=== PATIENT | female | born 1945 | race Caucasian/White ===

== ENCOUNTER → 2018-07-23 08:18 | Outpatient (CLI) | payer OTHER, SELFPAY ==
[2018-07-23 09:38] LABS: Creatinine Urine Random 73.5 mg/dL
[2018-07-23 09:43] LABS: Microalbumi Creatinin Ratio Ur 25.8 ug/mg CR (<30); Microalbumin Urine Random 1.9 mg/dL (0-1.6)
[2018-07-23 09:46] LABS: BUN Creatinine Ratio 26.7 (6-22); Blood Urea Nitrogen 24 mg/dL (7-17); Carbon Dioxide 22 mmol/L (22-32); Chloride 109 mmol/L (98-107); Cholesterol 172 mg/dL (140-199); Estimated Glomerular Filt Rate > 60.0 mL/min (>60); Glucose 89 mg/dL (80-110); HDL Cholesterol 59 mg/dL (40-60); HEMOLYSIS < 15 (0-50); LDL Cholesterol Calculated 87 mg/dL (<100); Sodium 146 mmol/L (137-145); Triglycerides 130 mg/dL (35-150)
[2018-07-23 09:49] LABS: Hemoglobin A1C% w Est Avg Glu 5.7 % (4.0-6.0)
== END ==
PROVIDERS: PCP Family Medicine; Visit Provider Family Medicine
DX: I10 Essential (primary) hypertension (principal); R73.9 Hyperglycemia, unspecified; R79.9 Abnormal finding of blood chemistry, unspecified
CPT/HCPCS: 36415; 80048; 80061; 82043; 82570; 83036

== ENCOUNTER → 2018-09-04 15:46 | Outpatient (CLI) | payer OTHER, SELFPAY ==
--- NOTE | 2018-09-04 15:50 | DI.MG.S_ITS ---
BILATERAL DIGITAL SCREENING MAMMOGRAM 3D/2D WITH CAD: 09/04/2018 CLINICAL: Routine screening. Comparison is made to exams dated: 03/01/2017 mammogram, 05/25/2015 mammogram - [facility], and 08/20/2013 mammogram - [facility] [place]. There are scattered fibroglandular elements in both breasts. Current study was also evaluated with a Computer Aided Detection (CAD) system. No significant masses, calcifications, or other findings are seen in either breast. There has been no significant interval change. IMPRESSION: NEGATIVE There is no mammographic evidence of malignancy. A 1 year screening mammogram is recommended. This exam was interpreted at Station ID: [id number]. NOTE: For mammograms, a report in lay terms will be sent to the patient. Approximately 15% of breast malignancies will not be visualized mammographically. In the management of a palpable breast mass, a negative mammogram must not discourage biopsy of a clinically suspicious lesion. Electronically Signed By: Dilia de leon/christie:09/04/2018 16:30:00 letter sent: Normal Exam ACR BI-RADS Category 1: Negative 3341F
== END ==
PROVIDERS: Family Provider Family Medicine; PCP Family Medicine; Visit Provider Family Medicine
DX: Z12.31 Encounter for screening mammogram for malignant neoplasm of breast (principal)
CPT/HCPCS: 77063; 77067

== ENCOUNTER → 2019-09-23 09:27 | Outpatient (CLI) | payer OTHER, SELFPAY ==
--- NOTE | 2019-09-23 | DI.MG.S_ITS ---
BILATERAL DIGITAL SCREENING MAMMOGRAM 3D/2D WITH CAD: 09/23/2019 CLINICAL: Routine screening. Comparison is made to exams dated: 09/04/2018 mammogram - [facility], 03/01/2017 mammogram, 05/25/2015 mammogram - [facility] [place], and 08/20/2013 mammogram - [facility]. There are scattered fibroglandular elements in both breasts. Current study was also evaluated with a Computer Aided Detection (CAD) system. No significant masses, calcifications, or other findings are seen in either breast. There has been no significant interval change. IMPRESSION: NEGATIVE There is no mammographic evidence of malignancy. A 1 year screening mammogram is recommended. This exam was interpreted at Station ID: [id number]. NOTE: For mammograms, a report in lay terms will be sent to the patient. Approximately 15% of breast malignancies will not be visualized mammographically. In the management of a palpable breast mass, a negative mammogram must not discourage biopsy of a clinically suspicious lesion. Electronically Signed By: Jb cabrera/christie:09/23/2019 10:19:28 letter sent: Normal Exam ACR BI-RADS Category 1: Negative 3341F
== END ==
PROVIDERS: PCP Family Medicine; Visit Provider Family Medicine
DX: Z12.31 Encounter for screening mammogram for malignant neoplasm of breast (principal)
CPT/HCPCS: 77063; 77067

== ENCOUNTER → 2020-09-29 09:27 | Outpatient (CLI) | payer OTHER, SELFPAY ==
--- NOTE | 2020-09-29 | DI.MG.S_ITS ---
BILATERAL DIGITAL SCREENING MAMMOGRAM 3D/2D WITH CAD: 09/29/2020 CLINICAL: Routine screening. Comparison is made to exams dated: 09/23/2019 mammogram, 09/04/2018 mammogram - [facility], and 03/01/2017 mammogram - [facility]. There are scattered fibroglandular elements in both breasts. Current study was also evaluated with a Computer Aided Detection (CAD) system. No significant masses, calcifications, or other findings are seen in either breast. There has been no significant interval change. IMPRESSION: NEGATIVE There is no mammographic evidence of malignancy. A 1 year screening mammogram is recommended. This exam was interpreted at Station ID: [id number]. NOTE: For mammograms, a report in lay terms will be sent to the patient. Approximately 15% of breast malignancies will not be visualized mammographically. In the management of a palpable breast mass, a negative mammogram must not discourage biopsy of a clinically suspicious lesion. Electronically Signed By: Hal Meade M.D., jr/christie:09/29/2020 11:31:11 letter sent: Normal Exam ACR BI-RADS Category 1: Negative 3341F
== END ==
PROVIDERS: PCP Family Medicine; Referring Provider Family Medicine; Visit Provider Family Medicine
DX: Z12.31 Encounter for screening mammogram for malignant neoplasm of breast (principal)
CPT/HCPCS: 77063; 77067

== ENCOUNTER → 2020-12-10 09:04 | Outpatient (CLI) | payer OTHER, SELFPAY ==
[2020-12-10 10:08] LABS: Alanine Aminotransferase 18 IU/L (<35); Albumin 4.4 g/dL (3.5-5.0); Albumin Globulin Ratio 1.4 (1.0-2.8); Alkaline Phosphatase 83 U/L (38-126); Aspartate Aminotransferase 32 IU/L (14-36); BUN Creatinine Ratio 32.5 (6-22); Bilirubin Total 0.2 mg/dL (0.2-1.3); Blood Urea Nitrogen 37 mg/dL (7-17); Calcium 9.6 mg/dL (8.4-10.2); Carbon Dioxide 22 mmol/L (22-32); Chloride 108 mmol/L (98-107); Estimated Glomerular Filt Rate 46.3 mL/min (>60); Globulin 3.2 g/dL (1.7-4.1); Glucose 95 mg/dL (80-110); HEMOLYSIS < 15 (0-50); Potassium 4.6 mmol/L (3.4-5.1); Sodium 141 mmol/L (137-145); Total Protein 7.6 g/dL (6.3-8.2)
[2020-12-10 10:43] LABS: Creatinine Urine Random 130.6 mg/dL
[2020-12-10 10:48] LABS: Microalbumi Creatinin Ratio Ur 12.2 ug/mg CR (<30); Microalbumin Urine Random 1.6 mg/dL (0-1.6)
== END ==
PROVIDERS: PCP Family Medicine; Referring Provider Family Medicine; Visit Provider Family Medicine
DX: I10 Essential (primary) hypertension (principal)
CPT/HCPCS: 36415; 80053; 82043; 82570

== ENCOUNTER → 2021-01-06 09:34 | Outpatient (CLI) | payer OTHER, SELFPAY ==
[2021-01-06 10:25] LABS: BUN Creatinine Ratio 26.8 (6-22); Blood Urea Nitrogen 26 mg/dL (7-17); Calcium 9.5 mg/dL (8.4-10.2); Carbon Dioxide 25 mmol/L (22-32); Chloride 109 mmol/L (98-107); Estimated Glomerular Filt Rate 55.8 mL/min (>60); Glucose 87 mg/dL (80-110); HEMOLYSIS < 15 (0-50); Potassium 4.2 mmol/L (3.4-5.1); Sodium 142 mmol/L (137-145)
== END ==
PROVIDERS: PCP Family Medicine; Referring Provider Family Medicine; Visit Provider Family Medicine
DX: R79.89 Other specified abnormal findings of blood chemistry (principal)
CPT/HCPCS: 36415; 80048

== ENCOUNTER → 2021-03-28 08:13 | Outpatient (CLI) | payer OTHER, SELFPAY ==
--- NOTE | 2021-03-28 08:14 | DI.RAD.S_ITS ---
PROCEDURE: XR CHEST 2V INDICATIONS: SOB TECHNIQUE: 2 views of the chest were acquired. COMPARISON: None. FINDINGS: Surgical changes and devices: None. Lungs and pleura: No pleural effusions or pneumothorax. Diffuse ill-defined reticular and ground-glass opacities are present primarily within the lung bases. No focal consolidation. Mediastinum: Mediastinal contours are normal. Heart size is normal. Bones and chest wall: No suspicious bony abnormalities. Soft tissues appear unremarkable. IMPRESSION: Ill-defined and hazy ground-glass mild opacities in both lung bases which could represent chronic scarring/interstitial disease although cannot exclude pulmonary edema or low-grade atypical or viral pneumonia in the absence of any prior studies. If there is persistent clinical diagnostic uncertainty, continued surveillance with short interval radiographic followup after treatment is recommended. Dictated by: Harvey Montanez M.D. on 03/28/2021 at 10:00 Approved by: Harvey Montanez M.D. on 03/28/2021 at 10:02
== END ==
PROVIDERS: PCP Family Medicine; Referring Provider Family Medicine; Visit Provider Family Medicine
DX: R06.02 Shortness of breath (principal)
CPT/HCPCS: 71046

== ENCOUNTER → 2021-04-05 08:35 | Outpatient (CLI) | payer OTHER, SELFPAY ==
--- NOTE | 2021-04-05 08:37 | DI.RAD.S_ITS ---
PROCEDURE: XR CHEST 2V INDICATIONS: SOB TECHNIQUE: 2 views of the chest were acquired. COMPARISON: [facility], CR, XR CHEST 2V, 03/28/2021, 8:13. FINDINGS: Surgical changes and devices: Surgical fusion in the visible lower lumbar spine. Lungs and pleura: Chronic coarse interstitial markings in the perihilar and bilateral lower lung regions. No dense consolidations. No pleural effusion or pneumothorax. Mediastinum: Mediastinal contours are normal. Heart size is normal. Bones and chest wall: No suspicious bony abnormalities. Soft tissues appear unremarkable. IMPRESSION: 1. No significant change compared to the most recent prior study. This may reflect chronic interstitial lung disease, bronchitis, or recurrent disease similar to 03/22 02/21. Dictated by: Jessica Pascual M.D. on 04/05/2021 at 11:24 Approved by: Jessica Pascual M.D. on 04/05/2021 at 11:26
== END ==
PROVIDERS: PCP Family Medicine; Referring Provider Family Medicine; Visit Provider Family Medicine
DX: R06.02 Shortness of breath (principal)
CPT/HCPCS: 71046

== ENCOUNTER → 2021-04-12 08:19 | Outpatient (CLI) | payer OTHER, SELFPAY ==
[2021-04-12 09:09] LABS: BUN Creatinine Ratio 31.1 (6-22); Blood Urea Nitrogen 28 mg/dL (7-17); Estimated Glomerular Filt Rate > 60.0 mL/min (>60)
== END ==
PROVIDERS: PCP Family Medicine; Referring Provider Family Medicine; Visit Provider Family Medicine
DX: R06.02 Shortness of breath (principal)
CPT/HCPCS: 36415; 82565; 84520

== ENCOUNTER → 2021-04-14 09:46 | Outpatient (CLI) | payer OTHER, SELFPAY ==
--- NOTE | 2021-04-14 09:47 | DI.CT.S_ITS ---
PROCEDURE: CT CHEST W CON INDICATIONS: SOB TECHNIQUE: After the administration of intravenous contrast, 5 mm thick sections acquired from the pulmonary apices to the posterior costophrenic angles. 1 mm axial lung, 5 mm thick coronal and sagittal reformats and 7 mm axial MIP were acquired. For radiation dose reduction, the following was used: automated exposure control, adjustment of mA and/or kV according to patient size. COMPARISON: [facility], CR, XR CHEST 2V, 04/05/2021, 8:37. [facility], CR, XR CHEST 2V, 03/28/2021, 8:13. FINDINGS: Image quality: Excellent. Lungs and pleura: Mild reticular thickening most pronounced at the subpleural lung bases and lingula. No consolidation. No pleural effusions or pneumothorax. Central airways are clear. Mediastinum: Heart size is normal. No pericardial effusion. No mediastinal or hilar adenopathy by size criteria. Thoracic aorta and central pulmonary arteries are normal in size. Esophagus is normal in caliber. No hiatal hernia. Bones and chest wall: No suspicious bony lesions. No vertebral body compression fractures. No axillary or supraclavicular adenopathy by size criteria. Subcentimeter right thyroid nodule measuring 0.9 cm, (2/1). Abdomen: Visualized upper abdominal solid organs appear normal. Upper abdominal bowel loops are normal in caliber. IMPRESSION: 1. Minimal reticular thickening. Favor scarring. Less likely early interstitial lung disease. 2. No pleural effusion. Dictated by: Mani Welch M.D. on 04/14/2021 at 12:16 Approved by: Mani Welch M.D. on 04/14/2021 at 12:24
== END ==
PROVIDERS: PCP Family Medicine; Referring Provider Family Medicine; Visit Provider Family Medicine
DX: R06.02 Shortness of breath (principal)
CPT/HCPCS: 71260; Q9967

== ENCOUNTER → 2021-06-15 09:00 | Outpatient (CLI) | payer OTHER, SELFPAY ==
[2021-06-15 09:50] LABS: COVID19 -Nasal RAPID Negative (Negative)
== END ==
PROVIDERS: PCP Family Medicine; Referring Provider Internal Medicine; Visit Provider Internal Medicine
DX: Z20.822 Contact with and (suspected) exposure to COVID-19 (principal)
CPT/HCPCS: 87635; C9803

== ENCOUNTER → 2021-06-16 08:49 | Outpatient (CLI) | payer OTHER, SELFPAY ==
--- NOTE | 2021-06-24 11:26 | P.PFT.S_ITS ---
Pulmonary Function Test Referral & Results Date Patient Seen: 06/16/21 Requesting provider: Hyacinth Polo Results: The spirometry demonstrates an FVC of 1.73 L which is 66% of predicted. The FEV1 was measured at 1.29 L which is 65% of predicted. The FEV1/FVC ratio was 74 which is 99% of predicted. Following the administration of bronchodilator there was an 18% improvement in FEV1 and a 117% improvement in FEF 25-75% Lung volumes show an SVC of 2.09 L which is 77% of predicted. The diffusing capacity was measured at 17.32 which is 75% of predicted. No hemoglobin value was provided, so no correction for potential anemia could be made, if appropriate. The maximum voluntary ventilation was reduced Interpretation: This study demonstrates probable mild obstructive lung disease based on r eduction FEV1 although FEV1/FVC ratio is preserved. There is evidence of significant benefit following bronchodilator as above. There is also minimal reduction in SVC suggesting restrictive lung disease is present which may explain at least in part the reduction FEV1 There is also mild reduction diffusing capacity suggesting element of disease at the capillary alveolar level Clinical correlation suggested
== END ==
PROVIDERS: PCP Family Medicine; Referring Provider Family Medicine; Visit Provider Family Medicine
DX: R05.9 Cough, unspecified (principal); J98.8 Other specified respiratory disorders
CPT/HCPCS: 94060; 94726; 94729

== ENCOUNTER → 2021-10-07 09:46 | Outpatient (CLI) | payer OTHER, SELFPAY ==
--- NOTE | 2021-10-07 | DI.MG.S_ITS ---
BILATERAL DIGITAL SCREENING MAMMOGRAM 3D/2D WITH CAD: 10/07/2021 CLINICAL: Routine screening. Comparison is made to exams dated: 09/29/2020 mammogram, 09/23/2019 mammogram, and 09/04/2018 mammogram - [facility]. There are scattered fibroglandular elements in both breasts. Current study was also evaluated with a Computer Aided Detection (CAD) system. No significant masses, calcifications, or other findings are seen in either breast. There has been no significant interval change. IMPRESSION: NEGATIVE There is no mammographic evidence of malignancy. A 1 year screening mammogram is recommended. This exam was interpreted at Station ID: [id number]. NOTE: For mammograms, a report in lay terms will be sent to the patient. Approximately 15% of breast malignancies will not be visualized mammographically. In the management of a palpable breast mass, a negative mammogram must not discourage biopsy of a clinically suspicious lesion. Electronically Signed By: Earl araujo/christie:10/07/2021 10:59:39 letter sent: Normal Exam ACR BI-RADS Category 1: Negative 3341F
--- NOTE | 2021-10-07 09:47 | DI.US.S_ITS ---
PROCEDURE: US THYROID INDICATIONS: nodule TECHNIQUE: Real-time scanning was performed of the thyroid gland, with image documentation. COMPARISON: None. FINDINGS: Right: Thyroid lobe measures 4.1 x 2.4 x 2.0 cm, and is homogeneous in echotexture. Left: Thyroid lobe measures 4.1 x 1.2 x 1.5 cm, and is homogenous in echotexture. Isthmus: 5 mm thick. Nodule number: 1 Location: Left mid thyroid lobe Size: 1.2 x 0.8 x 0.8 cm. Composition: Spongiform Echogenicity: Mixed echogenicity with both anechoic and hypoechoic components. Shape: wider than tall. Margins: Smooth Echogenic foci: None Total points: 1 ACR TI-RADS category: TI-RADS 2 (not suspicious) Nodule number: 2 Location: Right superior thyroid lobe Size: 1.2 x 0.9 x 1.4 cm. Composition: Predominantly cystic Echogenicity: Isoechoic Shape: wider than tall. Margins: Smooth Echogenic foci: None Total points: 1 ACR TI-RADS category: TI-RADS 2 (not suspicious) Nodule number: 3 Location: Right superior/mid thyroid lobe Size: 1.1 x 1.0 x 1.0 cm. Composition: Spongiform Echogenicity: Mixed echogenicity with anechoic and hyperechoic components. Shape: wider than tall. Margins: Smooth Echogenic foci: None Total points: 1 ACR TI-RADS category: TI-RADS 2 (not suspicious) Nodule number: 4 Location: Inferior right thyroid lobe Size: 1.2 x 0.8 x 1.3 cm. Composition: Spongiform Echogenicity: Mixed echogenicity with anechoic and hypoechoic components Shape: wider than tall. Margins: Smooth Echogenic foci: None Total points: 1 ACR TI-RADS category: TI-RADS 2 (not suspicious) IMPRESSION: Multiple bilateralTI-RADS 2 (not suspicious) thyroid nodules. Per consensus criteria, FNA is not needed. ACR TI-RADS definitions and recommendations: TI-RADS 1 (benign): 0 points. FNA not needed. TI-RADS 2 (not suspicious): 2 points. FNA not needed. TI-RADS 3 (mildly suspicious): 3 points. * FNA if 2.5 cm or larger, follow up if 1.5 cm or larger (at 1, 3, and 5 years). TI-RADS 4 (moderately suspicious): 4-6 points. * FNA if 1.5 cm or larger, follow up if 1 cm or larger (at 1, 2, 3, and 5 years). TI-RADS 5 (highly suspicious): 7 points or more. * FNA if 1 cm or larger, follow up if 0.5 cm or larger (every year for 5 years). Dictated by: Jb Lewis M.D. on 10/07/2021 at 12:31 Approved by: Jb Lewis M.D. on 10/07/2021 at 12:39
== END ==
PROVIDERS: PCP Family Medicine; Referring Provider Family Medicine; Visit Provider Family Medicine
DX: Z12.31 Encounter for screening mammogram for malignant neoplasm of breast (principal); E04.9 Nontoxic goiter, unspecified
CPT/HCPCS: 76536; 77063; 77067

== ENCOUNTER → 2021-11-04 13:18 | Outpatient (CLI) | payer OTHER, SELFPAY ==
--- NOTE | 2021-11-04 13:19 | DI.RAD.S_ITS ---
PROCEDURE: XR HIP W PEL IF DONE LT 2V INDICATIONS: Recent Fall with left leg/hip pain TECHNIQUE: AP pelvis with lateral view(s) of the left hip(s). COMPARISON: None. FINDINGS: Bones: Subtle lucency is seen extending through the junction of the left pubic symphysis with the inferior pubic ramus and fracture cannot be excluded. Pelvic ring appears intact. No suspicious bony lesions. Mild axial joint space narrowing bilaterally. Prior posterior/interbody fusion of the lumbosacral spine incompletely evaluated. Soft tissues: The visualized bowel gas pattern is normal. No suspicious soft tissue calcifications. IMPRESSION: 1. Subtle lucency extending through the junction of the left pubic symphysis and inferior pubic ramus which could be related to artifact; however fracture cannot be excluded. Recommend correlation to point tenderness and if indicated, cross-sectional imaging such as CT could be performed or follow-up radiographs. 2. Mild symmetric hip joint degeneration. Dictated by: Javier LEE Interpreted: Deniz Ordonez MD on 11/04/2021 at 13:47 Transcribed by: NAOMIE on 11/04/2021 at 13:51 Approved by: Deniz Ordonez M.D. on 11/04/2021 at 17:14
== END ==
PROVIDERS: PCP Family Medicine; Referring Provider Family Medicine; Visit Provider Family Medicine
DX: M16.12 Unilateral primary osteoarthritis, left hip (principal); M25.552 Pain in left hip; M79.605 Pain in left leg; Z91.81 History of falling; Z98.1 Arthrodesis status
CPT/HCPCS: 73502

== ENCOUNTER → 2021-11-09 10:44 | Outpatient (CLI) | payer OTHER, SELFPAY ==
--- NOTE | 2021-11-09 10:46 | DI.CT.S_ITS ---
PROCEDURE: CT PEL WO CON INDICATIONS: abnormal xray 11/04/21, poss fracture pubic bone with pain TECHNIQUE: Noncontrast 3 mm axial sections acquired through the bony pelvis, with coronal and sagittal reformatting. COMPARISON: [facility], , XR HIP W PEL IF DONE LT 2V, 11/04/2021, 13:14. FINDINGS: Image quality: Excellent. Bones: No acute, displaced fracture or dislocation. Postsurgical change of the lumbar spine at L4 through S1 with discectomy. Soft tissues: No significant abnormality. Myomatous change of the uterus. IMPRESSION: No acute osseous abnormality. If the patient's pain persists, consider magnetic resonance imaging. Dictated by: Angel Luis Chavez M.D. on 11/09/2021 at 12:09 Approved by: Angel Luis Chavez M.D. on 11/09/2021 at 12:12
== END ==
PROVIDERS: PCP Family Medicine; Referring Provider Family Medicine; Visit Provider Family Medicine
DX: R93.89 Abnormal findings on diagnostic imaging of other specified body structures (principal); R10.2 Pelvic and perineal pain; M25.559 Pain in unspecified hip
CPT/HCPCS: 72192

== ENCOUNTER → 2022-10-06 08:46 | Outpatient (CLI) | payer OTHER, SELFPAY ==
[2022-10-06 11:13] LABS: Add Manual Diff / Slide Review NO; Basophils Absolute Auto 0 /uL (0-100); Basophils Percent Auto 0.5 % (0-2); Eosinophils Absolute Auto 300 /uL (0-450); Eosinophils Percent Auto 4.7 % (2-4); Hematocrit 37.1 % (36-46); Hemoglobin 12.2 g/dL (12.0-16.0); Lymphocytes Absolute Auto 2000 /uL (1100-4500); Lymphocytes Percent Auto 35.7 % (25-40); Mean Corpuscular HGB Conc 32.8 % (30-36); Mean Corpuscular Hemoglobin 29.4 PG (26-34); Mean Corpuscular Volume 89.5 fL (80-100); Monocytes Absolute Auto 400 /uL (0-900); Monocytes Percent Auto 8.1 % (3-14); Neutrophils Absolute Auto 2800 /uL (1500-7000); Platelet Count 269 X10^3/uL (150-400); Red Blood Cell Count 4.15 X10^6/uL (4.0-5.2); Red Cell Distribution Width 14.2 % (11.6-14.8); White Blood Cell Count 5.5 X10^3/uL (4.5-11.0)
[2022-10-06 11:46] LABS: Alanine Aminotransferase 17 IU/L (<35); Albumin 4.4 g/dL (3.5-5.0); Albumin Globulin Ratio 1.4 (1.0-2.8); Alkaline Phosphatase 94 U/L (38-126); Aspartate Aminotransferase 26 IU/L (14-36); BUN Creatinine Ratio 28.6 (6-22); Bilirubin Total 0.3 mg/dL (0.2-1.3); Blood Urea Nitrogen 26 mg/dL (7-17); Calcium 9.8 mg/dL (8.4-10.2); Carbon Dioxide 23 mmol/L (22-32); Chloride 106 mmol/L (98-107); Cholesterol 192 mg/dL (140-199); Estimated Glomerular Filt Rate > 60 mL/min (>60); Globulin 3.1 g/dL (1.7-4.1); Glucose 80 mg/dL (80-110); HDL Cholesterol 75 mg/dL (40-60); HEMOLYSIS < 15 (0-50); LDL Cholesterol Calculated 95 mg/dL (<100); Potassium 4.6 mmol/L (3.4-5.1); Sodium 141 mmol/L (137-145); Total Protein 7.5 g/dL (6.3-8.2); Triglycerides 112 mg/dL (35-150)
[2022-10-06 12:04] LABS: Creatinine Urine Random 88.2 mg/dL
[2022-10-06 12:14] LABS: TSH w/ Reflex to FT4 0.04 uIU/mL (0.47-4.68)
[2022-10-06 12:20] LABS: Microalbumi Creatinin Ratio Ur 91.8 ug/mg CR (<30); Microalbumin Urine Random 8.1 mg/dL (0-1.6)
[2022-10-06 12:39] LABS: Free T4, Direct Thyroxine 1.25 ng/dL (0.78-2.19)
== END ==
PROVIDERS: PCP Family Medicine; Referring Provider Physician Assistant; Visit Provider Physician Assistant
DX: E66.9 Obesity, unspecified (principal); E78.5 Hyperlipidemia, unspecified; I10 Essential (primary) hypertension; K21.9 Gastro-esophageal reflux disease without esophagitis; Z79.890 Hormone replacement therapy
CPT/HCPCS: 36415; 80053; 80061; 82043; 82570; 84439; 84443; 85025

== ENCOUNTER → 2022-10-12 11:27 | Outpatient (CLI) | payer OTHER, SELFPAY ==
[2022-10-12 14:38] LABS: TSH w/ Reflex to FT4 0.48 uIU/mL (0.47-4.68)
== END ==
PROVIDERS: PCP Family Medicine; Referring Provider Family Medicine; Visit Provider Family Medicine
DX: E03.9 Hypothyroidism, unspecified (principal)
CPT/HCPCS: 36415; 84443

== ENCOUNTER → 2022-11-17 11:00 | Outpatient (CLI) | payer OTHER, SELFPAY ==
--- NOTE | 2022-11-17 | DI.MG.S_ITS ---
BILATERAL DIGITAL SCREENING MAMMOGRAM 3D/2D WITH CAD: 11/17/2022 CLINICAL: Routine screening. Comparison is made to exams dated: 10/07/2021 mammogram, 09/29/2020 mammogram, 09/04/2018 mammogram, and 09/23/2019 mammogram - [facility]. There are scattered areas of fibroglandular density in both breasts (category b / 25%-50% glandular tissue). Current study was also evaluated with a Computer Aided Detection (CAD) system. No significant masses, calcifications, or other findings are seen in either breast. There has been no significant interval change. IMPRESSION: NEGATIVE There is no mammographic evidence of malignancy. A 1 year screening mammogram is recommended. Based on the Tyrer Cuzick model (a risk assessment model) the patient's lifetime risk is 1.5% and her 10 year risk is 0.0%. According to the ACR, ACS, and NCCN guidelines, an annual breast MRI exam along with mammogram is recommended if the patient's lifetime risk is 20% or greater. This exam was interpreted at Station ID: [id number]. NOTE: For mammograms, a report in lay terms will be sent to the patient. Approximately 15% of breast malignancies will not be visualized mammographically. In the management of a palpable breast mass, a negative mammogram must not discourage biopsy of a clinically suspicious lesion. Electronically Signed By: Jessica hamm/christie:11/17/2022 17:28:52 letter sent: Normal Exam ACR BI-RADS Category 1: Negative 3341F
== END ==
PROVIDERS: PCP Family Medicine; Referring Provider Family Medicine; Visit Provider Family Medicine
DX: Z12.31 Encounter for screening mammogram for malignant neoplasm of breast (principal)
CPT/HCPCS: 77063; 77067

== ENCOUNTER 2023-07-10 11:18 | Day surgery (SDC) | payer OTHER, SELFPAY ==
[2023-07-10] VITALS (9 sets, daily range): BP systolic 137–197; BP diastolic 74–90; PULSE 83–94; RESP 12–21; TEMP 36.6–36.7; O2SAT 96–100; BMI 36.6
[2023-07-10 11:59] LABS: Add Manual Diff / Slide Review NO; Basophils Absolute Auto 100 /uL (0-100); Basophils Percent Auto 0.9 % (0-2); Eosinophils Absolute Auto 200 /uL (0-450); Eosinophils Percent Auto 3.1 % (2-4); Hematocrit 36.8 % (36-46); Hemoglobin 12.4 g/dL (12.0-16.0); Lymphocytes Absolute Auto 1600 /uL (1100-4500); Lymphocytes Percent Auto 25.9 % (25-40); Mean Corpuscular HGB Conc 33.8 % (30-36); Mean Corpuscular Volume 88.8 fL (80-100); Monocytes Absolute Auto 400 /uL (0-900); Monocytes Percent Auto 7.1 % (3-14); Neutrophils Absolute Auto 4000 /uL (1500-7000); Platelet Count 291 X10^3/uL (150-400); Red Blood Cell Count 4.14 X10^6/uL (4.0-5.2); Red Cell Distribution Width 14.1 % (11.6-14.8); White Blood Cell Count 6.3 X10^3/uL (4.5-11.0)
--- NOTE | 2023-07-10 12:08 | DI.CT.S_ITS ---
PROCEDURE: CT ABDOMEN PELVIS W CON INDICATIONS: rlq pain; s/p appy TECHNIQUE: After the administration of intravenous contrast, axial sections acquired from the lung bases to the pubic symphysis. Coronal and sagittal reformats were performed. For radiation dose reduction, the following was used: automated exposure control, adjustment of mA and/or kV according to patient size. COMPARISON: None. FINDINGS: Image quality: Good Lower chest: Basal scarring/atelectasis is present. No hiatal hernia. Normal heart size. Annular calcifications of the heart. Solid organs: Suspected focal fat adjacent to the falciform ligament. There is also a cyst in segment 4. Subcentimeter lesions are too small to characterize in the liver, probably also cysts. Gallbladder is mildly distended without radiopaque stone. No pathologic dilation of the biliary system or pancreatic duct. Possible pancreatic head cystic lesion versus fatty cleft measuring 7-8 mm. No splenomegaly. No adrenal nodules. Right lower pole nonobstructing calculus. Moderate right hydronephrosis. In the right proximal ureter, there is a obstructing stone measuring up to 10 x 6 x 5 mm. In the left upper pole, there is a complicated cystic lesion with possible peripheral soft tissue measuring 2.1 by 2 cm (3/45). There is possible extension into the collecting system (3/43) the left collecting system is otherwise nondilated. Vessels and lymph nodes: No abdominal aortic aneurysm. There are atherosclerotic calcifications. No pathologic lymph nodes by size criteria. The main portal vein appears patent. Bowel and peritoneum: No evidence of small bowel obstruction. The appendix is absent. No drainable abscess or ascites. Mid small bowel hyperdensity may represent ingested material Body wall: Unremarkable Pelvis: Suspected small calcified fibroids. Reproductive organs otherwise not well evaluated on CT. Bladder is under distended, unremarkable. Bones: Lumbosacral fusion changes. There are degenerative changes. IMPRESSION: Obstructing stone with moderate hydronephrosis in the right proximal ureter, measuring up to 1 cm. Possible solid cystic mass with collecting system extension in the upper pole of the left kidney (coronal image 3/43, 44, 45). Following clinical stabilization, consider follow-up MR renal mass protocol to determine if this is a true mass. Possible pancreatic head small cystic lesion versus fatty cleft, attention on follow-up. Other findings as above. Dictated by: Linwood Pandey M.D. on 07/10/2023 at 12:52 Approved by: Linwood Pandey M.D. on 07/10/2023 at 13:00
[2023-07-10 12:11] LABS: Alanine Aminotransferase 18 IU/L (<35); Albumin 4.6 g/dL (3.5-5.0); Albumin Globulin Ratio 1.3 (1.0-2.8); Alkaline Phosphatase 77 U/L (38-126); Aspartate Aminotransferase 30 IU/L (14-36); BUN Creatinine Ratio 19.4 (6-22); Bilirubin Total 0.6 mg/dL (0.2-1.3); Blood Urea Nitrogen 30 mg/dL (7-17); Carbon Dioxide 20 mmol/L (22-32); Chloride 108 mmol/L (98-107); Estimated Glomerular Filt Rate 34 mL/min (>60); Globulin 3.5 g/dL (1.7-4.1); Glucose 95 mg/dL (80-110); HEMOLYSIS 32 (0-50); Lipase 224 U/L (23-300); Potassium 4.5 mmol/L (3.4-5.1); Sodium 141 mmol/L (137-145); Total Protein 8.1 g/dL (6.3-8.2)
--- NOTE | 2023-07-10 12:11 | ED.ABDPAIN ---
HPI - Abdominal Pain <Alex Teran PA-C - Last Filed: 07/10/23 16:34> General Chief Complaint: Abdominal Pain Stated Complaint: Rside pain started this morning Time Seen by Provider: 07/10/23 11:39 Source: patient Mode of arrival: Ambulatory History of Present Illness HPI narrative: 77-year-old with past medical history hyperlipidemia, hypertension, osteoarthritis, GERD presents to the ED with 1 day of severe right lower quadrant pain. Patient states that the pain started spontaneously this morning, rates it as 9/10 at its worst. Currently, patient experiencing 7/10 pain. Patient appears very uncomfortable. Patient denies fever, chills, chest pain, shortness of breath, vomiting, nausea, diarrhea, lightheadedness, dizziness, syncope. Patient states that she has had 2 other episodes of abdominal pain over the last 2 months, 1 in the right lower quadrant and 1 in the left lower quadrant. Patient states that the other 2 episodes also involved nausea and dry heaving. Today, patient denies nausea and vomiting but expresses a lack of appetite. Patient was not seen for the prior 2 episodes of abdominal pain. Patient is status post appendectomy. No other abdominal surgeries. Related Data Home Medications Medication Instructions Recorded Confirmed omega 2-cer-iaj-fish oil 1,000 mg 1,400 mg PO QDAY ##0 04/03/17 07/17/23 (120 mg-180 mg) capsule (Fish Oil) [Calicum ] 1,200 mg BID ##0 04/04/17 07/17/23 [Centrum Silver] Q DAY ##0 04/04/17 07/17/23 [Leg Cramps PM] Q DAY ##0 04/04/17 07/17/23 [S adenosyl methionin] ##0 04/04/17 09/28/22 [natural bounty hair ] BID ##0 04/04/17 07/17/23 magnesium oxide 400 mg (241.3 mg 400 mg Q DAY ##0 04/04/17 07/17/23 magnesium) tablet loratadine 10 mg tablet 10 mg PO HS ##0 06/19/17 07/17/23 acetaminophen 500 mg tablet 500 mg PO BID PRN 07/17/23 07/17/23 qyenqpw-kpphzphkzxlef-jxnurhjd 250 1 tab PO Q4-6H PRN 07/17/23 07/17/23 mg-250 mg-65 mg tablet (Excedrin Extra Strength) gabapentin PO 07/17/23 07/17/23 hydrocodone 5 mg-acetaminophen 325 1 tab PO Q8H PRN 07/17/23 07/17/23 mg tablet multivitamin 1 tab PO DAILY 07/17/23 07/17/23 potassium [Potassium-99] PO 07/17/23 07/17/23 zinc PO 07/17/23 Previous Rx's Medication Instructions Recorded disabled parking permit #1 ea 10/30/18 ciclesonide 80 mcg/actuation 1 puff inhalation BID #6.1 grams 05/11/21 aerosol inhaler (Alvesco) albuterol sulfate 90 mcg/actuation 2 puff inhalation Q4HP PRN asthma, 06/22/21 aerosol inhaler (Ventolin HFA) SOB #8.5 grams estradiol 0.5 mg tablet 0.5 mg PO DAILY #90 tabs 09/28/22 losartan 25 mg tablet 25 mg PO BID #180 tabs 09/28/22 medroxyprogesterone 2.5 mg tablet 2.5 mg PO DAILY #45 tabs 09/28/22 omeprazole 40 mg capsule,delayed 40 mg PO BID #180 caps 09/28/22 release simvastatin 20 mg tablet 20 mg PO BEDTIME #90 tabs 09/28/22 ciprofloxacin HCl 500 mg tablet 500 mg PO BID #10 tabs 07/10/23 phenazopyridine 200 mg tablet 200 mg PO TID PRN pain #30 tabs 07/10/23 (Pyridium) tamsulosin 0.4 mg capsule 0.8 mg (2 x 0.4 mg) PO DAILY #60 07/10/23 caps Allergies Allergy/AdvReac Type Severity Reaction Status Date / Time Sulfa (Sulfonamide Allergy Severe MY GLANDS Verified 07/17/23 15:43 Antibiotics) SWELL, I [SULFA (SULFONAMIDE CAN'T TURN ANTIBIOTICS)] MY HEAD, FEEL SICK Patient History <Alex Teran PA-C - Last Filed: 07/10/23 16:34> Medical History Arthritis Pyuria Urinary tract infection Elevated serum creatinine Right ureteral calculus Osteoarthritis Hypertension Lumbar spinal stenosis Surgical History Anesthesia History of tonsillectomy Status post appendectomy (1956) S/P lumbar fusion (06/29/17) Family History Father No problems noted. Mother No problems noted. Grandmother Heart disease Grandfather Cancer Grandmother No problems noted. Grandfather Heart disease Social History marital status: number of children: 2 household members: other occupational status: previously employed Smoking Status: Never smoker second hand exposure: No alcohol intake: current substance use type: does not use caffeine: No Type(s) of exercise: walking frequency: daily Smoking Status: Never smoker alcohol intake frequency: holidays/special occasions only Substance Use Type: does not use Exam <Alex Teran PA-C - Last Filed: 07/10/23 16:34> Narrative Exam Narrative: Const General:?cooperative, healthy appearing and comfortable [facility] Head:?normal to inspection Ears:?hearing grossly normal bilaterally Nose:?external nose normal Face and sinus:?normal facial exam and sinuses nontender Mouth:?oral mucosae normal Throat:?posterior oropharynx normal Eyes General:?appearance normal, both eyes and all related structures Neck Neck:?normal visual inspection and no lymphadenopathy noted Resp Effort & Inspection:?normal respiratory effort Auscultation:?clear to auscultation bilaterally Cardio Rate:?regular rate Rhythm:?regular rhythm GI Abdomen is soft, nondistended. Abdomen is tender to palpation in the lower quadrants, R>L. No CVA tenderness. Neuro General:?patient alert, patient awake and patient oriented x3 Initial Vital Signs Initial Vital Signs: Vital Signs Temperature 97.8 F 07/10/23 11:23 Pulse Rate 89 07/10/23 11:23 Respiratory Rate 20 07/10/23 11:23 Blood Pressure 137/82 07/10/23 11:23 Pulse Oximetry 98 07/10/23 11:23 Oxygen Delivery Method Room Air 07/10/23 11:23 <Nancie Wisdom DO - Last Filed: 07/18/23 01:26> Initial Vital Signs Initial Vital Signs: Vital Signs Temperature 97.8 F 07/10/23 11:23 Pulse Rate 89 07/10/23 11:23 Respiratory Rate 20 07/10/23 11:23 Blood Pressure 137/82 07/10/23 11:23 Pulse Oximetry 98 07/10/23 11:23 Oxygen Delivery Method Room Air 07/10/23 11:23 Course <Alex Teran PA-C - Last Filed: 07/10/23 16:34> Orders Ordered: Discontinued Medications Acetaminophen (Acetaminophen 325 Mg Tablet) 650 mg PO Q4H PRN PRN Reason: Pain, Mild (1-3) Albuterol (Albuterol 2.5 Mg/3 Ml Neb (Adult)) 2.5 mg INH NOW PRN PRN Reason: Coughing, Wheezing, Dyspnea Benzocaine (Benzocaine/Menthol 1 Sunny Pkt) 1 each PO PRN PRN PRN Reason: Sore Throat Hydromorphone HCl (Hydromorphone 1 Mg Inj) 0 mg IV Q5MIN PRN PRN Reason: Pain, Mild (1-3) Ceftriaxone Sodium 1,000 mg/ (Sodium Chloride) 100 mls @ 200 mls/hr IV NOW ONE Stop: 07/10/23 13:09 Last Infusion: 07/10/23 14:00 Dose: Infused Documented By: Admin: 07/10/23 13:18 Dose: 200 mls/hr Documented By: TEP Sodium Chloride (Normal Saline 0.9%) 1,000 mls @ 1,000 mls/hr IV BOLUS ONE Stop: 07/10/23 14:07 Last Infusion: 07/10/23 14:52 Dose: Infused Documented By: Admin: 07/10/23 13:18 Dose: 1,000 mls/hr Documented By: TEP Lactated Ringer's (Lactated Ringers) 1,000 mls @ 42 mls/hr IV CONT MARCIA Last Infusion: 07/10/23 17:12 Dose: Infused Documented By: Admin: 07/10/23 15:43 Dose: 42 mls/hr Documented By: CG Ketorolac Tromethamine (Ketorolac 30 Mg/Ml Vial) 15 mg IV NOW ONE Stop: 07/10/23 12:10 Last Admin: 07/10/23 12:18 Dose: 15 mg Documented By: TEP Morphine Sulfate (Morphine 4 Mg/Ml Inj) 4 mg IV NOW ONE Stop: 07/10/23 13:30 Last Admin: 07/10/23 13:38 Dose: 4 mg Documented By: LIZBETH Ondansetron HCl (Ondansetron 4 Mg Odt) 4 mg PO NOW PRN PRN Reason: Nausea And Vomiting Ondansetron HCl (Ondansetron 4 Mg/2 Ml Inj) 4 mg IV NOW PRN PRN Reason: Nausea And Vomiting Ondansetron HCl (Ondansetron 4 Mg/2 Ml Inj) 4 mg IV Q4H PRN PRN Reason: Nausea And Vomiting Oxycodone HCl (Oxycodone Ir 5 Mg Tablet) 5 mg PO PACUNOW PRN PRN Reason: Mild or moderate pain Phenazopyridine HCl (Phenazopyridine 100 Mg Tablet) 200 mg PO TID PRN PRN Reason: Bladder irritation Last Admin: 07/10/23 16:30 Dose: 200 mg Documented By: TC Vital Signs Vital signs: Vital Signs - 8 hr 07/10/23 11:23 07/10/23 15:34 07/10/23 16:14 Temperature 97.8 F 97.9 F 98.1 F Pulse Rate 89 94 H 84 Respiratory Rate 20 21 12 Blood Pressure 137/82 197/83 H 140/78 Pulse Oximetry 98 96 100 Oxygen Delivery Method Room Air Room Air Simple Mask Oxygen Flow Rate 5 07/10/23 16:19 07/10/23 16:24 07/10/23 16:31 Temperature Pulse Rate 84 86 91 H Respiratory Rate 12 12 16 Blood Pressure 147/79 H 167/86 H Pulse Oximetry 100 99 98 Oxygen Delivery Method Simple Mask Room Air Room Air Oxygen Flow Rate 5 <Nancie Wisdom DO - Last Filed: 07/18/23 01:26> Orders Ordered: Discontinued Medications Acetaminophen (Acetaminophen 325 Mg Tablet) 650 mg PO Q4H PRN PRN Reason: Pain, Mild (1-3) Albuterol (Albuterol 2.5 Mg/3 Ml Neb (Adult)) 2.5 mg INH NOW PRN PRN Reason: Coughing, Wheezing, Dyspnea Benzocaine (Benzocaine/Menthol 1 Sunny Pkt) 1 each PO PRN PRN PRN Reason: Sore Throat Hydromorphone HCl (Hydromorphone 1 Mg Inj) 0 mg IV Q5MIN PRN PRN Reason: Pain, Mild (1-3) Ceftriaxone Sodium 1,000 mg/ (Sodium Chloride) 100 mls @ 200 mls/hr IV NOW ONE Stop: 07/10/23 13:09 Last Infusion: 07/10/23 14:00 Dose: Infused Documented By: Admin: 07/10/23 13:18 Dose: 200 mls/hr Documented By: TEP Sodium Chloride (Normal Saline 0.9%) 1,000 mls @ 1,000 mls/hr IV BOLUS ONE Stop: 07/10/23 14:07 Last Infusion: 07/10/23 14:52 Dose: Infused Documented By: Admin: 07/10/23 13:18 Dose: 1,000 mls/hr Documented By: TEP Lactated Ringer's (Lactated Ringers) 1,000 mls @ 42 mls/hr IV CONT MARCIA Last Infusion: 07/10/23 17:12 Dose: Infused Documented By: Admin: 07/10/23 15:43 Dose: 42 mls/hr Documented By: CG Ketorolac Tromethamine (Ketorolac 30 Mg/Ml Vial) 15 mg IV NOW ONE Stop: 07/10/23 12:10 Last Admin: 07/10/23 12:18 Dose: 15 mg Documented By: TEP Morphine Sulfate (Morphine 4 Mg/Ml Inj) 4 mg IV NOW ONE Stop: 07/10/23 13:30 Last Admin: 07/10/23 13:38 Dose: 4 mg Documented By: TEP Ondansetron HCl (Ondansetron 4 Mg Odt) 4 mg PO NOW PRN PRN Reason: Nausea And Vomiting Ondansetron HCl (Ondansetron 4 Mg/2 Ml Inj) 4 mg IV NOW PRN PRN Reason: Nausea And Vomiting Ondansetron HCl (Ondansetron 4 Mg/2 Ml Inj) 4 mg IV Q4H PRN PRN Reason: Nausea And Vomiting Oxycodone HCl (Oxycodone Ir 5 Mg Tablet) 5 mg PO PACUNOW PRN PRN Reason: Mild or moderate pain Phenazopyridine HCl (Phenazopyridine 100 Mg Tablet) 200 mg PO TID PRN PRN Reason: Bladder irritation Last Admin: 07/10/23 16:30 Dose: 200 mg Documented By: TC Vital Signs Vital signs: Vital Signs - 8 hr 07/10/23 11:23 07/10/23 15:34 07/10/23 16:14 Temperature 97.8 F 97.9 F 98.1 F Pulse Rate 89 94 H 84 Respiratory Rate 20 21 12 Blood Pressure 137/82 197/83 H 140/78 Pulse Oximetry 98 96 100 Oxygen Delivery Method Room Air Room Air Simple Mask Oxygen Flow Rate 5 07/10/23 16:19 07/10/23 16:24 07/10/23 16:31 Temperature Pulse Rate 84 86 91 H Respiratory Rate 12 12 16 Blood Pressure 147/79 H 167/86 H Pulse Oximetry 100 99 98 Oxygen Delivery Method Simple Mask Room Air Room Air Oxygen Flow Rate 5 MDM - Abdominal Pain <Hyma CHELE Teran - Last Filed: 07/10/23 16:34> Lab Data 07/10/23 11:50 07/10/23 11:50 Labs: Lab Results 07/10/23 07/10/23 Range/Units 11:40 11:50 WBC 6.3 (4.5-11.0) X10^3/uL RBC 4.14 (4.0-5.2) X10^6/uL Hgb 12.4 (12.0-16.0) g/dL Hct 36.8 (36-46) % MCV 88.8 (80-100) fL MCH 30.0 (26-34) PG MCHC 33.8 (30-36) % RDW 14.1 (11.6-14.8) % Plt Count 291 (150-400) X10^3/uL Neut % (Auto) 63.0 (50-75) % Lymph % (Auto) 25.9 (25-40) % [place] % (Auto) 7.1 (3-14) % Eos % (Auto) 3.1 (2-4) % Baso % (Auto) 0.9 (0-2) % Neut # (Auto) 4000 (6385-1325) /uL Lymph # (Auto) 1600 (7722-3409) /uL [place] # (Auto) 400 (0-900) /uL Eos # (Auto) 200 (0-450) /uL Baso # (Auto) 100 (0-100) /uL Sodium 141 (137-145) mmol/L Potassium 4.5 (3.4-5.1) mmol/L Chloride 108 H (98-107) mmol/L Carbon Dioxide 20 L (22-32) mmol/L BUN 30 H (7-17) mg/dL Creatinine 1.55 H (0.52-1.04) mg/dL Estimated GFR 34 L (>60) mL/min BUN/Creatinine Ratio 19.4 (6-22) Glucose 95 (80-110) mg/dL Calcium 10.0 (8.4-10.2) mg/dL Total Bilirubin 0.6 (0.2-1.3) mg/dL AST 30 (14-36) IU/L ALT 18 (<35) IU/L Alkaline Phosphatase 77 (38-126) U/L Total Protein 8.1 (6.3-8.2) g/dL Albumin 4.6 (3.5-5.0) g/dL Globulin 3.5 (1.7-4.1) g/dL Albumin/Globulin Ratio 1.3 (1.0-2.8) Lipase 224 (23-300) U/L Urine RBC 1-5/hpf (0-5/HPF) Urine WBC 10-30/hpf H (0-5/HPF) Ur Squamous Epith Cells 1-5 /hpf (0-5/HPF) Urine Bacteria Occasional (0-1) (None) Ur Culture Indicated? Specimen cultured Point of care testing: Urine Dip Bedside Urine Bilirubin - Negative Bedside Urine Ketone - Negative Urine Specific [place] 1.015 Bedside Urine Occult Blood ++ Bedside Urine pH 6 Bedside Urine Protein + 30 Bedside Urine Urobilinogen - Negative Bedside Urine Nitrite - Negative Bedside Urine Leukocytes + 70 Esterase MDM Narrative Medical decision making narrative: 77-year-old with past medical history hyperlipidemia, hypertension, osteoarthritis, GERD presents to the ED with 1 day of severe right lower quadrant pain. Concern for nephrolithiasis versus diverticulitis versus constipation versus other intra-abdominal pathology versus other. Will obtain labs, lipase, CT abdomen pelvis. Will give ketorolac for pain. Will reassess. CT abdomen pelvis shows a 10 x 6 x 5 mm obstructing stone in the right proximal ureter with mild hydronephrosis in the right kidney. There were some other incidental findings noted including a possible solid cystic mass in the left upper pole with possible extension into the collecting system. A possible pancreatic head cystic lesion versus fatty cleft was also noted on CT. UA was positive for UTI. Patient is started on 1 g of Rocephin IV and 1 L of IV fluids. Patient's pain was well controlled with ketorolac and morphine. Dr. Ramirez from Urology was consulted, he graciously accepts to take the patient to the OR for stent placement. Discussed findings and plan with patient. She verbalized understanding. Medical records reviewed: Yes <Nancie Wisdom, - Last Filed: 07/18/23 01:26> Lab Data Labs: Lab Results 07/10/23 07/10/23 Range/Units 11:40 11:50 WBC 6.3 (4.5-11.0) X10^3/uL RBC 4.14 (4.0-5.2) X10^6/uL Hgb 12.4 (12.0-16.0) g/dL Hct 36.8 (36-46) % MCV 88.8 (80-100) fL MCH 30.0 (26-34) PG MCHC 33.8 (30-36) % RDW 14.1 (11.6-14.8) % Plt Count 291 (150-400) X10^3/uL Neut % (Auto) 63.0 (50-75) % Lymph % (Auto) 25.9 (25-40) % [place] % (Auto) 7.1 (3-14) % Eos % (Auto) 3.1 (2-4) % Baso % (Auto) 0.9 (0-2) % Neut # (Auto) 4000 (4590-1269) /uL Lymph # (Auto) 1600 (5419-1777) /uL [place] # (Auto) 400 (0-900) /uL Eos # (Auto) 200 (0-450) /uL Baso # (Auto) 100 (0-100) /uL Sodium 141 (137-145) mmol/L Potassium 4.5 (3.4-5.1) mmol/L Chloride 108 H (98-107) mmol/L Carbon Dioxide 20 L (22-32) mmol/L BUN 30 H (7-17) mg/dL Creatinine 1.55 H (0.52-1.04) mg/dL Estimated GFR 34 L (>60) mL/min BUN/Creatinine Ratio 19.4 (6-22) Glucose 95 (80-110) mg/dL Calcium 10.0 (8.4-10.2) mg/dL Total Bilirubin 0.6 (0.2-1.3) mg/dL AST 30 (14-36) IU/L ALT 18 (<35) IU/L Alkaline Phosphatase 77 (38-126) U/L Total Protein 8.1 (6.3-8.2) g/dL Albumin 4.6 (3.5-5.0) g/dL Globulin 3.5 (1.7-4.1) g/dL Albumin/Globulin Ratio 1.3 (1.0-2.8) Lipase 224 (23-300) U/L Urine RBC 1-5/hpf (0-5/HPF) Urine WBC 10-30/hpf H (0-5/HPF) Ur Squamous Epith Cells 1-5 /hpf (0-5/HPF) Urine Bacteria Occasional (0-1) (None) Ur Culture Indicated? Specimen cultured Point of care testing: Urine Dip Bedside Urine Bilirubin - Negative Bedside Urine Ketone - Negative Urine Specific [place] 1.015 Bedside Urine Occult Blood ++ Bedside Urine pH 6 Bedside Urine Protein + 30 Bedside Urine Urobilinogen - Negative Bedside Urine Nitrite - Negative Bedside Urine Leukocytes + 70 Esterase Discharge Plan Discharge Plan Discharge Problem: Nephrolithiasis UTI (urinary tract infection) Qualifiers: Urinary tract infection type: acute cystitis Hematuria presence: with hematuria Qualified Code(s): N30.01 - Acute cystitis with hematuria Patient Disposition: Admitted to Surgery Provider Discharge Comment: Patient is to be discharged to home to follow up my office in the next approximately 10 days with a KUB. Patient should when fully awake and alert resume her regular diet, regular activity and normal bathing habit without restriction. Patient may experience blood in her urine she does have a ureteral stent in place and this may cause some dysuria, frequency, urgency which is to be expected. Patient will be discharged home on an antibiotic and on tamsulosin. The patient should be warned that with the tamsulosin if she is not drinking enough water she may experience some lightheadedness and this is not so much in effect of the medication but she is not consuming enough fluid. Discharge orders & Medications Discharge Orders: Discharge (Order); Ordered 07/10/23 Ordered By: Alejandro Ramirez Prescriptions: New tamsulosin 0.4 mg capsule 0.8 mg PO DAILY Qty: 60 1RF ciprofloxacin HCl 500 mg tablet 500 mg PO BID Qty: 10 0RF Rx Instructions: Please have the patient hold her simvastatin while taking the Cipro phenazopyridine [Pyridium] 200 mg tablet 200 mg PO TID PRN (Reason: pain) Qty: 30 0RF Continued Alvesco 80 mcg/actuation HFA aerosol inhaler 1 puff inhalation BID Qty: 6.1 2RF estradiol 0.5 mg tablet 0.5 mg PO DAILY Qty: 90 3RF losartan 25 mg tablet 25 mg PO BID Qty: 180 3RF medroxyprogesterone 2.5 mg tablet 2.5 mg PO DAILY Qty: 45 3RF simvastatin 20 mg tablet 20 mg PO BEDTIME Qty: 90 3RF omeprazole 40 mg capsule,delayed release(DR/EC) 40 mg PO BID Qty: 180 3RF omega 2-gzx-pzq-fish oil [Fish Oil] 1,000 MG capsule 1,400 mg PO QDAY Qty: 0 [S adenosyl methionin] Qty: 0 magnesium oxide 400 MG tablet 400 mg Q DAY Qty: 0 [Leg Cramps PM] Q DAY Qty: 0 [Calicum ] 1,200 mg BID Qty: 0 [Centrum Silver] Q DAY Qty: 0 [natural bounty hair ] BID Qty: 0 loratadine 10 MG tablet 10 mg PO HS Qty: 0 albuterol sulfate [Ventolin HFA] 90 mcg/actuation HFA aerosol inhaler 2 puff inhalation Q4HP PRN (Reason: asthma, SOB) Qty: 8.5 1RF (DME) disabled parking permit Qty: 1 0RF Dose Instruction: As directed Rx Instructions: My patient has a medical necessity that affects her mobility and her walking is severely limited No Action acetaminophen 500 mg tablet 500 mg PO BID PRN multivitamin Tablet 1 tab PO DAILY Excedrin Extra Strength 250-250-65 mg tablet 1 tab PO Q4-6H PRN hydrocodone-acetaminophen 5-325 mg tablet 1 tab PO Q8H PRN gabapentin PO zinc PO potassium [Potassium-99] PO Follow up/Referrals: Hyacinth Polo MD [Primary Care Provider] - Alejandro Ramirez MD [Physician] - 2 Weeks Diet/Activity/Treatments Diet: Diet as Tolerated Visit Report/Discharge Packet Instructions: DI for Cystoscopy Stand Alone Forms: Patient Portal/API, Stroke Signs & Symptoms, Surgery Discharge Discharge Data Primary Care Provider: Hyacinth Polo Attending Provider: Alex Teran Discharges patient from system. Discharge Date/Time: 07/10/23 17:13 ED Sign-out <Nancie Wisdom DO - Last Filed: 07/18/23 01:26> Cosign ED Attending Cosgarthature Attestation: I was immediately available in the department for consultation. Case was discussed. Patient has stone elevation and creatinine and concern for infection and urine. Urology is on-call contacted and bland for patient to go to OR for stent placement day. Agree with current plan and treatment.
[2023-07-10] MEDS: KETOROLAC 30 MG/ML VIAL 15 MG IV (12:18)
[2023-07-10 12:22] LABS: Bacteria Urine Occasional (0-1); Culture Indicated Urine Specimen Cultured; RBC Urine 1-5/HPF (0-5/HPF); Squamous Epithelial Cell Urine 1-5 /HPF (0-5/HPF); WBC Urine 10-30/HPF (0-5/HPF)
[2023-07-10] MEDS: SODIUM CHLORIDE 0.9% 1,000 ML 1000 ML IV (13:18)
[2023-07-10] MEDS: cefTRIAXone 1,000 MG in SODIUM CHLORIDE 0.9% 100 ML 200 MG IV (13:18)
[2023-07-10] MEDS: MORPHINE 4 MG/ML INJ IV (13:38)
--- NOTE | 2023-07-10 15:01 | PM.CN ---
History of Present Illness Consult details Date Patient Seen: 07/10/23 Time Patient Seen: 15:01 Chief complaint: Obstructing right ureteral calculus Reason for consult: Obstructing right ureteral calculus, elevated creatinine, evidence UTI Requesting provider: Alex Teran Narrative: Was called to see this 77-year-old female who presented to the emergency department with complaints of right-sided flank pain. Through the workup she was found to have a 1 cm proximal right ureteral calculus which had evidence of obstruction as well as evidence of infection and a significant bump in her creatinine. Patient reports he is never had a kidney stone before or kidney stone treatment. She denies at this point fever, chills, nausea, vomiting, sign or symptom of infectious systemic illness. She is been given a g of Rocephin in the emergency department. She is never had anything like this before. Denies any gross hematuria has had right flank pain and colic. And so the procedure, risks, alternatives for cystoscopy with right ureteral stent placement were discussed with the patient at length in her questions were answered risks to include but not limited to bleeding, infection, injury to surrounding structures, ureteral perforation, need for percutaneous nephrostomy tube, possible need for future procedures, worsening of her current urinary tract infection, unforeseen and unpredictable consequences in sequelae. Patient voices understanding and acceptance of risks and wishes to proceed. She will be taken to the operating room where cystoscopy with stent placement will be performed and then patient will be discharged to home to follow up my office at a later date. Meds Home Medications and Allergies Home Medications Medication Instructions Recorded Confirmed Type omega 4-xgr-ctb-fish oil 1,000 mg 1,400 mg PO QDAY ##0 04/03/17 09/28/22 History (120 mg-180 mg) capsule (Fish Oil) [Calicum ] 1,200 mg BID ##0 04/04/17 09/28/22 History [Centrum Silver] Q DAY ##0 04/04/17 09/28/22 History [Leg Cramps PM] Q DAY ##0 04/04/17 09/28/22 History [S adenosyl methionin] ##0 04/04/17 09/28/22 History [natural bounty hair ] BID ##0 04/04/17 09/28/22 History magnesium oxide 400 mg (241.3 mg 400 mg Q DAY ##0 04/04/17 09/28/22 History magnesium) tablet loratadine 10 mg tablet 10 mg PO HS ##0 06/19/17 09/28/22 History disabled parking permit #1 ea 10/30/18 09/28/22 Rx ciclesonide 80 mcg/actuation 1 puff inhalation BID #6.1 grams 05/11/21 09/28/22 Rx aerosol inhaler (Alvesco) albuterol sulfate 90 mcg/actuation 2 puff inhalation Q4HP PRN asthma, 06/22/21 09/28/22 Rx aerosol inhaler (Ventolin HFA) SOB #8.5 grams amoxicillin 875 mg-potassium 1 tab PO BID #14 tabs 09/28/22 09/28/22 Rx clavulanate 125 mg tablet estradiol 0.5 mg tablet 0.5 mg PO DAILY #90 tabs 09/28/22 09/28/22 Rx losartan 25 mg tablet 25 mg PO BID #180 tabs 09/28/22 09/28/22 Rx medroxyprogesterone 2.5 mg tablet 2.5 mg PO DAILY #45 tabs 09/28/22 09/28/22 Rx omeprazole 40 mg capsule,delayed 40 mg PO BID #180 caps 09/28/22 09/28/22 Rx release simvastatin 20 mg tablet 20 mg PO BEDTIME #90 tabs 09/28/22 09/28/22 Rx Allergies Allergy/AdvReac Type Severity Reaction Status Date / Time Sulfa (Sulfonamide Allergy Severe MY GLANDS Verified 12/24/20 10:58 Antibiotics) SWELL, I [SULFA (SULFONAMIDE CAN'T TURN ANTIBIOTICS)] MY HEAD, FEEL SICK Exam Vital Signs (past 8 hours): - 07/10/23 11:23 Temperature 97.8 F Pulse Rate 89 Respiratory Rate 20 Blood Pressure 137/82 Pulse Oximetry 98 Oxygen Delivery Method Room Air Oxygen Delivery Method Room Air Narrative Exam Narrative: General: This is an awake, alert, oriented female wearing corrective lenses lying on a gurney who appears in moderate distress. Lungs: Coarse breath sounds Cardiovascular exam: Regular rate and rhythm with a rate in the 80s. Abdominal exam: Obese, soft, not particularly tender. Back: Right CVA tenderness to percussion Genitourinary exam not indicated so not done Neurologic exam: Grossly intact Objective Labs 07/10/23 11:50 07/10/23 11:50 Labs: Laboratory Results - last 24 hr 07/10/23 07/10/23 11:40 11:50 WBC 6.3 RBC 4.14 Hgb 12.4 Hct 36.8 MCV 88.8 MCH 30.0 MCHC 33.8 RDW 14.1 Plt Count 291 Neut % (Auto) 63.0 Lymph % (Auto) 25.9 [place] % (Auto) 7.1 Eos % (Auto) 3.1 Baso % (Auto) 0.9 Neut # (Auto) 4000 Lymph # (Auto) 1600 [place] # (Auto) 400 Eos # (Auto) 200 Baso # (Auto) 100 Sodium 141 Potassium 4.5 Chloride 108 H Carbon Dioxide 20 L BUN 30 H Creatinine 1.55 H Estimated GFR 34 L BUN/Creatinine Ratio 19.4 Glucose 95 Calcium 10.0 Total Bilirubin 0.6 AST 30 ALT 18 Alkaline Phosphatase 77 Total Protein 8.1 Albumin 4.6 Globulin 3.5 Albumin/Globulin Ratio 1.3 Lipase 224 Urine RBC 1-5/hpf Urine WBC 10-30/hpf H Ur Squamous Epith Cells 1-5 /hpf Urine Bacteria Occasional (0-1) Ur Culture Indicated? Specimen cultured [facility] Medical History (Updated 07/10/23 @ 15:08 by Alejandro Ramirez MD) Pyuria Urinary tract infection Elevated serum creatinine Right ureteral calculus Osteoarthritis Hypertension Lumbar spinal stenosis Surgical History Anesthesia History of tonsillectomy Status post appendectomy (1956) S/P lumbar fusion (06/29/17) Family History Father No problems noted. Mother No problems noted. Grandmother Heart disease Grandfather Cancer Grandmother No problems noted. Grandfather Heart disease Tobacco & Substance Use Smoking Status: Never smoker second hand exposure: No alcohol intake: current substance use type: does not use Assessment & Plan Assessment and plan (1) Elevated serum creatinine: Status: Acute (2) Urinary tract infection: Qualifiers: Urinary tract infection type: acute cystitis Hematuria presence: without hematuria Qualified Code(s): N30.00 - Acute cystitis without hematuria Status: Acute (3) Pyuria: Status: Acute (4) Right ureteral calculus: Status: Acute Plan Assessment and plan: 1. Obstructing 1 cm right ureteral calculus plan would be for cystoscopy with right ureteral stent placement. 2. Urinary tract infection the patient has received Rocephin in the emergency department and will be sent home on an antibiotic till her culture results return of note the patient does have an allergy to sulfa antibiotics 3. Pyuria consistent with her urinary tract infection 4. Elevated serum creatinine likely related to the current clinical situation will monitor this to see if it does not improve. COVID-19 COVID-19 status: Not tested Time Spent With Patient Time with patient: 30 to 49 minutes with 50% spent counseling/coordinating care
--- NOTE | 2023-07-10 15:09 | PM.PREOP ---
Pre-operative Note COVID-19 COVID-19 status: Not tested Interval Note History & Physical reviewed/Exam performed by Physician: Yes Changes to H&P: No
[2023-07-10] MEDS: LACTATED RINGERS 1,000 ML 42 ML IV (15:43)
--- NOTE | 2023-07-10 16:06 | SUR.OPER ---
Lithotomy on padded OR bed, head on pillow, arms secured on padded arm boards at <90 degrees abduction. Legs secured in padded yellow fins stirrups.
--- NOTE | 2023-07-10 16:10 | PM.OP.1 ---
Procedure & Clinicians Procedure: Cystoscopy with right ureteral stent placement Same procedure as scheduled: Yes Indications: This 77-year-old female presented to the emergency department with complaint of right abdominal and flank pain. Through workup she was found to have a 1 cm obstructing right ureteral calculus in the proximal ureter. An elevated creatinine and evidence of urinary tract infection. She received 1 g of Rocephin and presents at this time for cystoscopy with stent placement to alleviate any blockage in the collecting system the stone will be treated at a later date once the dust has ?settled?. Surgeon: Alejandro Ramirez Click Yes if Unassisted: Yes Anesthesia Type: General Operative Notes Findings: External genitalia shows some evidence of atrophic vaginitis. There is minimal introital narrowing, the urethral meatus does appear normal the urethra is normal along its length. The right and left ureteral orifice in normal position with clear efflux. The bladder mucosa is normal no evidence of fistula or other abnormality noted. The stone was noted to be in the proximal 3rd of the ureter. And there appeared to be no other stones observed. The 7 Belgian by multilink stent was left in good position in the right collecting system without a string. Closure Type: not applicable Specimen(s): none sent Prosthetic devices, grafts, tissues, transplants, or devices: Seven Belgian by multi length stent right collecting system no string. Estimated Blood Loss (mL): 0 Procedure in detail: Procedure in detail: After informed consent was obtained, the patient was identified and brought to the operating room where she was placed in his supine position on the table and had anesthesia induced and maintained. Ensuring an adequate level of anesthesia patient was transitioned to the lithotomy position where she was prepped, draped, repaired for Transurethral procedure. After prepping, draping, ensuring an adequate level of anesthesia and time-out a 22 Belgian cystoscope was passed through the urethra in the bladder where cystoscopy was performed. The right ureteral orifice was identified and a hybrid guidewire was passed up and into the collecting system under fluoroscopic visualization. The stent was then passed over the wire and a coaxial fashion positioned in the renal pelvis under fluoroscopic visualization and in the bladder under direct vision the nylon harness or so called string was removed the stent was left in good position confirmed by direct vision and fluoroscopy. The bladder was drained the scope was removed and the patient was transferred to the postanesthesia care unit having tolerated the procedure well. There were no complications Complications: none Post-operative Condition: stable Disposition: PACU Plan for aftercare: Patient will be discharged to home to follow up my office in the next 7-10 days patient will go home on antibiotics till her culture returns as well as tamsulosin 0.8 mg. We will obtain a BMP and a KUB at her follow-up visit to make sure that her creatinine returned to normal and ascertain the position of the stone at that time.
[2023-07-10] MEDS: PHENAZOPYRIDINE 100 MG TABLET 200 MG PO (16:30)
== END 2023-07-10 17:13 | disposition home or self-care (01) ==
LOC: ED 16:41 → AC 16:50
PROVIDERS: Emergency Medicine; Urology; PCP Family Medicine; Referring Provider Student in an Organized Health Care Education/Training Program; Visit Provider Student in an Organized Health Care Education/Training Program
PROC: (CPT 52332; principal; 2023-07-10 15:30)
DX: N20.1 Calculus of ureter (principal); I10 Essential (primary) hypertension; K21.9 Gastro-esophageal reflux disease without esophagitis; N39.0 Urinary tract infection, site not specified
CPT/HCPCS: 52332; 74177; 76000; 80053; 81003; 81015; 83690; 85025; 87086; 96374; 96375; 99284; J0696; J1885; J2270

== ENCOUNTER → 2023-07-16 10:00 | Outpatient (CLI) | payer OTHER, SELFPAY ==
--- NOTE | 2023-07-16 10:07 | DI.RAD.S_ITS ---
PROCEDURE: XR KUB INDICATIONS: kidney stones TECHNIQUE: One view of the abdomen acquired. COMPARISON: [facility], CT, CT ABDOMEN PELVIS W CON, 07/10/2023, 12:26. FINDINGS: Surgical changes and devices: A right ureteral stent appears well position. Postoperative changes of pedicular screw and wiliam fixation spanning from L4 through S1. Bowel: Bowel gas pattern is normal. Soft tissues: No suspicious abdominal calcifications. Visualized solid organ contours appear normal in size. No renal stones. Calcified uterine fibroid noted in the pelvis. Bones: No suspicious bony lesions. IMPRESSION: Interval placement of a right ureteral stent. Kidney stone seen on CT from 07/10/2023 is not visualized by plain film. Dictated by: Herb Gordillo M.D. on 07/16/2023 at 13:49 Approved by: Herb Gordillo M.D. on 07/16/2023 at 13:51
[2023-07-16 11:25] LABS: BUN Creatinine Ratio 20.5 (6-22); Blood Urea Nitrogen 25 mg/dL (7-17); Carbon Dioxide 21 mmol/L (22-32); Chloride 107 mmol/L (98-107); Estimated Glomerular Filt Rate 45 mL/min (>60); Glucose 94 mg/dL (80-110); HEMOLYSIS 36 (0-50); Sodium 140 mmol/L (137-145)
== END ==
PROVIDERS: PCP Family Medicine; Referring Provider Urology; Visit Provider Urology
DX: N20.2 Calculus of kidney with calculus of ureter (principal); Z96.0 Presence of urogenital implants
CPT/HCPCS: 36415; 74018; 80048

== ENCOUNTER → 2023-07-17 15:56 | Outpatient (CLI) | payer OTHER, SELFPAY | PROVIDERS: PCP Family Medicine; Visit Provider Urology | DX: N39.0 Urinary tract infection, site not specified (principal) | CPT/HCPCS: 87086 ==

== ENCOUNTER → 2023-07-17 16:34 | Outpatient (CLI) | payer OTHER, SELFPAY ==
[2023-07-17 18:34] LABS: Blood Urea Nitrogen 30 mg/dL (7-17); Calcium 9.6 mg/dL (8.4-10.2); Carbon Dioxide 21 mmol/L (22-32); Chloride 107 mmol/L (98-107); Estimated Glomerular Filt Rate 46 mL/min (>60); Glucose 95 mg/dL (80-110); HEMOLYSIS < 15 (0-50); Potassium 4.2 mmol/L (3.4-5.1); Sodium 140 mmol/L (137-145)
== END ==
PROVIDERS: PCP Family Medicine; Referring Provider Urology; Visit Provider Urology
DX: N30.01 Acute cystitis with hematuria (principal); N20.0 Calculus of kidney; R79.89 Other specified abnormal findings of blood chemistry; R82.81 Pyuria
CPT/HCPCS: 36415; 80048; 81002; 87086; 99214

== ENCOUNTER 2023-07-24 11:04 | Day surgery (SDC) | payer OTHER, SELFPAY ==
[2023-07-18 12:14] VITALS: BMI 36.6
[2023-07-24] MEDS: LACTATED RINGERS 1,000 ML 42 ML IV (11:28)
--- NOTE | 2023-07-24 11:30 | PM.PREOP ---
Pre-operative Note COVID-19 COVID-19 status: Not tested Interval Note History & Physical reviewed/Exam performed by Physician: Yes Changes to H&P: No
[2023-07-24 11:42] VITALS: BP 165/72; PULSE 100; RESP 24; TEMP 36.9; O2SAT 98; BMI 36.6
[2023-07-24] MEDS: CEFAZOLIN 2 GM/100 ML PREMIX 100 ML IV (12:20)
--- NOTE | 2023-07-24 12:29 | SUR.OPER ---
Supine on ESWL table, head on pillow, arms padded and tucked at sides, legs uncrossed.
[2023-07-24 13:01] VITALS: BP 158/64; PULSE 101; RESP 14; TEMP 36.1; O2SAT 99
--- NOTE | 2023-07-24 13:01 | PM.OP.1 ---
Procedure & Clinicians Procedure: Right extracorporeal shockwave lithotripsy Same procedure as scheduled: Yes Indications: This 77-year-old female presents for right extracorporeal shockwave lithotripsy having presented with a complaints of right-sided pain found to have a large right-sided stone proceeded to cystoscopy with stent placement this resulted in the stone being pushed up into the kidney as the stent was placed. Time has been allowed for the dust to settle and she presents this time for right extracorporeal shockwave lithotripsy to treat her stone. Surgeon: Alejandro Ramirez Click Yes if Unassisted: Yes Anesthesia Type: General Operative Notes Findings: Findings: Stent was noted to be in good position stone was in proximity to the upper curl of the stent. At 2000 shocks the stone appeared to be well fragmented. The stent was left in good position the patient received a total of 2000 shocks at level 7 with apparent complete fragmentation of the stone. No other abnormalities were observations were noted. Closure Type: not applicable Specimen(s): none sent Estimated Blood Loss (mL): 0 Procedure in detail: Procedure in detail: After informed consent was obtained, the patient was identified and brought to the operating room where she was placed in the supine position on the Lithotripter. Patient then had anesthesia induced and maintained. Ensuring an adequate level of anesthesia, after time-out and administration of antibiotics the stone was targeted via the imaging system and shockwave delivered. The shockwave delivered up to level 7. With periodic reimaging and re localization of the stone to ensure maximum energy delivery to the stone. At a 1000 shocks the shockwave head was rotated out and fluoroscopy performed. There was a fragment that had moved laterally this was then re targeted as the shockwave head was rolled in and the area again received another 1000 shocks with periodic reimaging and re localization to ensure maximal energy to the stone. Two thousand shocks shockwave head was once again rotated out and fluoroscopy performed at this point the stone appeared to be completely and well fragmented. The patient was awakened having tolerated the procedure well. She was transferred to the postanesthesia care unit for recovery to be discharged from there to home. There were no complications Post-operative Condition: stable Disposition: PACU Plan for aftercare: The patient is to strain her urine and save any fragments which he will bring to follow-up. Follow-up is to be in approximately 10-14 days with a KUB.
[2023-07-24 13:06] VITALS: BP 152/64; PULSE 102; RESP 14; O2SAT 98
[2023-07-24 13:11] VITALS: BP 106/59; PULSE 99; RESP 14; O2SAT 98
[2023-07-24 13:18] VITALS: BP 123/59; PULSE 91; RESP 12; TEMP 36.3; O2SAT 99
[2023-07-24 13:20] VITALS: BP 122/60; PULSE 92; RESP 12; TEMP 36.6; O2SAT 99
== END 2023-07-24 13:34 | disposition home or self-care (01) ==
PROVIDERS: PCP Family Medicine; Referring Provider Urology; Visit Provider Urology
PROC: (CPT 50590; principal; 2023-07-24 12:00)
DX: N20.0 Calculus of kidney (principal); R79.89 Other specified abnormal findings of blood chemistry; R82.81 Pyuria; N30.01 Acute cystitis with hematuria
CPT/HCPCS: 50590; J0690; J1100; J2405; J2704; J3010

== ENCOUNTER → 2023-08-06 10:04 | Outpatient (CLI) | payer OTHER, SELFPAY ==
--- NOTE | 2023-08-06 10:05 | DI.RAD.S_ITS ---
PROCEDURE: XR KUB INDICATIONS: Follow-up stone treatment TECHNIQUE: One view of the abdomen acquired. COMPARISON: [facility], CT, CT ABDOMEN PELVIS W CON, 07/10/2023, 12:26. [facility], CR, XR KUB, 07/16/2023, 10:15. FINDINGS: Surgical changes and devices: There is a right ureteral stent in expected position. Bowel: Bowel gas pattern is normal. Soft tissues: Right renal and proximal ureteral stones seen on the comparison CT are not definitively visualized. Visualized solid organ contours appear normal in size. Bones: No suspicious bony lesions. Postsurgical changes noted in the lower lumbar spine. IMPRESSION: 1. Right ureteral stent in expected position. Right renal and ureteral stones seen on the comparison CT are not visualized on the radiograph. Dictated by: Gustavo Coffey M.D. on 08/06/2023 at 14:24 Approved by: Gustavo Coffey M.D. on 08/06/2023 at 14:27
== END ==
PROVIDERS: PCP Family Medicine; Referring Provider Urology; Visit Provider Urology
DX: N20.0 Calculus of kidney (principal); Z87.442 Personal history of urinary calculi; Z96.0 Presence of urogenital implants
CPT/HCPCS: 74018

== ENCOUNTER → 2023-08-09 14:01 | Outpatient (CLI) | payer OTHER, SELFPAY ==
[2023-08-17 19:18] LABS: Ca oxalate dihydrate 30 % (.); Ca oxalate monohydr 70 % (.)
== END ==
PROVIDERS: PCP Family Medicine; Visit Provider Urology
DX: N39.0 Urinary tract infection, site not specified (principal); N20.0 Calculus of kidney; R30.0 Dysuria; R31.29 Other microscopic hematuria; Z96.0 Presence of urogenital implants
CPT/HCPCS: 81002; 82365; 87086

== ENCOUNTER → 2023-09-10 10:54 | Outpatient (CLI) | payer OTHER, SELFPAY ==
[2023-09-10 13:11] LABS: Cholesterol 184 mg/dL (140-199); HDL Cholesterol 67 mg/dL (40-60); LDL Cholesterol Calculated 92 mg/dL (<100); Triglycerides 123 mg/dL (35-150)
[2023-09-10 13:22] LABS: BUN Creatinine Ratio 20.5 (6-22); Blood Urea Nitrogen 24 mg/dL (7-17); Calcium 10.3 mg/dL (8.4-10.2); Carbon Dioxide 25 mmol/L (22-32); Chloride 107 mmol/L (98-107); Estimated Glomerular Filt Rate 48 mL/min (>60); Glucose 89 mg/dL (80-110); HEMOLYSIS < 15 (0-50); Sodium 141 mmol/L (137-145); Uric Acid 7.3 mg/dL (2.5-6.2)
[2023-09-11 19:50] LABS: Creatinine Urine Random 56.5 mg/dL
[2023-09-11 19:57] LABS: Microalbumi Creatinin Ratio Ur 256.6 ug/mg CR (<30); Microalbumin Urine Random 14.5 mg/dL (0-1.6)
[2023-09-12 08:30] LABS: Calcium 9.8 mg/dL (8.7-10.3); Parathyroid Hormone, Intact 58 pg/mL (15-65)
== END ==
PROVIDERS: PCP Family Medicine; Referring Provider Urology; Visit Provider Family Medicine
DX: E78.5 Hyperlipidemia, unspecified (principal); I10 Essential (primary) hypertension; R79.89 Other specified abnormal findings of blood chemistry; N20.0 Calculus of kidney
CPT/HCPCS: 36415; 80048; 80061; 82043; 82310; 82570; 83970; 84550

== ENCOUNTER → 2023-11-28 11:15 | Outpatient (CLI) | payer OTHER, SELFPAY ==
--- NOTE | 2023-11-28 11:17 | DI.RAD.S_ITS ---
PROCEDURE: XR FOOT LT MIN 3V INDICATIONS: pain TECHNIQUE: 3 views of the foot were acquired. COMPARISON: None. FINDINGS: Bones: No fractures or dislocations. No suspicious bony lesions. Scattered IP degenerative narrowing. Small calcaneal spur. Soft tissues: No tibiotalar joint effusion. Achilles tendon appears normal. IMPRESSION: Scattered IP degenerative narrowing. Dictated by: Jennifer Sterling M.D. on 11/28/2023 at 13:24 Approved by: Jennifer Sterling M.D. on 11/28/2023 at 13:25
[2023-11-28 12:55] LABS: BUN Creatinine Ratio 29.4 (6-22); Blood Urea Nitrogen 35 mg/dL (7-17); Calcium 9.8 mg/dL (8.4-10.2); Carbon Dioxide 21 mmol/L (22-32); Chloride 112 mmol/L (98-107); Estimated Glomerular Filt Rate 47 mL/min (>60); Glucose 78 mg/dL (80-110); HEMOLYSIS < 15 (0-50); Sodium 140 mmol/L (137-145); Uric Acid 7.9 mg/dL (2.5-6.2)
[2023-11-28 12:58] LABS: Potassium 5.6 mmol/L (3.4-5.1)
== END ==
PROVIDERS: PCP Family Medicine; Referring Provider Urology; Visit Provider Urology
DX: R52 Pain, unspecified (principal); M77.32 Calcaneal spur, left foot; N20.0 Calculus of kidney
CPT/HCPCS: 36415; 73630; 80048; 84550

== ENCOUNTER → 2023-12-14 10:52 | Outpatient (CLI) | payer OTHER, SELFPAY ==
--- NOTE | 2023-12-14 10:54 | DI.MG.S_ITS ---
BILATERAL DIGITAL SCREENING MAMMOGRAM 3D/2D WITH CAD: 12/14/2023 CLINICAL: Routine screening. Comparison is made to exams dated: 11/17/2022 mammogram, 10/07/2021 mammogram, and 09/29/2020 mammogram - [facility]. There are scattered areas of fibroglandular density in both breasts (category b / 25%-50% glandular tissue). Current study was also evaluated with a Computer Aided Detection (CAD) system. No significant masses, calcifications, or other findings are seen in either breast. There has been no significant interval change. IMPRESSION: NEGATIVE There is no mammographic evidence of malignancy. A 1 year screening mammogram is recommended. Based on the Tyrer Cuzick model (a risk assessment model) the patient's lifetime risk is 1.3% and her 10 year risk is 0.0%. According to the ACR, ACS, and NCCN guidelines, an annual breast MRI exam along with mammogram is recommended if the patient's lifetime risk is 20% or greater. This exam was interpreted at Station ID: [id number]. NOTE: For mammograms, a report in lay terms will be sent to the patient. Approximately 15% of breast malignancies will not be visualized mammographically. In the management of a palpable breast mass, a negative mammogram must not discourage biopsy of a clinically suspicious lesion. Electronically Signed By: Mani barrett/christie:12/14/2023 16:36:47 letter sent: Normal Exam ACR BI-RADS Category 1: Negative [id number]
== END ==
LOC: MAMMO 10:52
PROVIDERS: PCP Family Medicine; Referring Provider Family Medicine; Visit Provider Family Medicine
DX: Z12.31 Encounter for screening mammogram for malignant neoplasm of breast (principal); R92.323 Mammographic fibroglandular density, bilateral breasts
CPT/HCPCS: 77063; 77067

== ENCOUNTER → 2023-12-14 10:54 | Outpatient (CLI) | payer OTHER, SELFPAY ==
[2023-12-14 12:30] LABS: BUN Creatinine Ratio 26.4 (6-22); Blood Urea Nitrogen 32 mg/dL (7-17); Calcium 9.5 mg/dL (8.4-10.2); Carbon Dioxide 22 mmol/L (22-32); Chloride 113 mmol/L (98-107); Estimated Glomerular Filt Rate 46 mL/min (>60); Glucose 87 mg/dL (80-110); HEMOLYSIS 17 (0-50); Sodium 142 mmol/L (137-145)
== END ==
PROVIDERS: Urology; PCP Family Medicine; Referring Provider Family Medicine; Visit Provider Family Medicine
DX: N20.0 Calculus of kidney (principal)
CPT/HCPCS: 36415; 80048; 84550

== ENCOUNTER → 2023-12-27 16:48 | Outpatient (CLI) | payer OTHER, SELFPAY ==
[2023-12-27 18:23] LABS: Uric Acid 5.3 mg/dL (2.5-6.2)
== END ==
PROVIDERS: PCP Family Medicine; Referring Provider Urology; Visit Provider Urology
DX: N20.0 Calculus of kidney (principal)
CPT/HCPCS: 36415; 84550

== ENCOUNTER → 2024-01-08 13:16 | Outpatient (CLI) | payer OTHER, SELFPAY ==
[2024-01-08 13:36] LABS: Add Manual Diff / Slide Review NO; Basophils Absolute Auto 0 /uL (0-100); Basophils Percent Auto 0.7 % (0-2); Eosinophils Absolute Auto 300 /uL (0-450); Eosinophils Percent Auto 5.2 % (2-4); Hematocrit 35.7 % (36-46); Hemoglobin 11.9 g/dL (12.0-16.0); Lymphocytes Absolute Auto 1800 /uL (1100-4500); Lymphocytes Percent Auto 32.3 % (25-40); Mean Corpuscular HGB Conc 33.3 % (30-36); Mean Corpuscular Hemoglobin 29.8 PG (26-34); Mean Corpuscular Volume 89.5 fL (80-100); Monocytes Absolute Auto 400 /uL (0-900); Monocytes Percent Auto 7.3 % (3-14); Neutrophils Absolute Auto 3000 /uL (1500-7000); Neutrophils Percent Auto 54.5 % (50-75); Platelet Count 290 X10^3/uL (150-400); Red Blood Cell Count 3.99 X10^6/uL (4.0-5.2); Red Cell Distribution Width 13.8 % (11.6-14.8); White Blood Cell Count 5.5 X10^3/uL (4.5-11.0)
[2024-01-08 14:53] LABS: Vitamin B12 > 1000 pg/mL (239-931)
[2024-01-08 16:13] LABS: Free T4, Direct Thyroxine 1.36 ng/dL (0.78-2.19)
== END ==
LOC: LAB 13:17
PROVIDERS: PCP Family Medicine; Referring Provider Family Medicine; Visit Provider Family Medicine
DX: R68.83 Chills (without fever) (principal); R53.83 Other fatigue; I10 Essential (primary) hypertension; M19.90 Unspecified osteoarthritis, unspecified site; Z79.899 Other long term (current) drug therapy
CPT/HCPCS: 36415; 82607; 84439; 84443; 85025; 86038

== ENCOUNTER → 2024-01-15 16:36 | Outpatient (CLI) | payer OTHER, SELFPAY ==
[2024-01-15 17:15] LABS: Appearance Urine UA CLOUDY; Bilirubin Urine UA NEGATIVE (NEGATIVE); Glucose Urine UA NEGATIVE (Negative); Ketones Urine UA NEGATIVE (NEGATIVE); Leukocyte Esterase Urine UA TRACE (NEGATIVE); Nitrite Urine UA NEGATIVE (Negative); Occult Blood Urine UA 3+ (Negative); Protein Urine UA 1+ (Negative); Specific Gravity Urine UA 1.015 (1.000-1.035); Urobilinogen Urine UA 0.2 E.U./dL (0.2)
[2024-01-15 17:16] LABS: Color Urine UA Dark Yellow
[2024-01-15 17:28] LABS: Bacteria Urine Occasional (0-1); Culture Indicated Urine Specimen Cultured; RBC Urine >100/HPF (0-5/HPF); Squamous Epithelial Cell Urine 1-5 /HPF (0-5/HPF); Urine Volume 10mL (spun); WBC Urine 1-5/HPF (0-5/HPF)
== END ==
PROVIDERS: PCP Family Medicine; Referring Provider Urology; Visit Provider Urology
DX: R31.9 Hematuria, unspecified (principal)
CPT/HCPCS: 81001; 87086

== ENCOUNTER → 2024-01-17 14:19 | Outpatient (CLI) | payer OTHER, SELFPAY ==
[2024-01-17 15:40] LABS: Appearance Urine UA CLEAR; Bilirubin Urine UA NEGATIVE (NEGATIVE); Color Urine UA YELLOW; Glucose Urine UA NEGATIVE (Negative); Ketones Urine UA NEGATIVE (NEGATIVE); Leukocyte Esterase Urine UA NEGATIVE (NEGATIVE); Nitrite Urine UA NEGATIVE (Negative); Occult Blood Urine UA 3+ (Negative); Protein Urine UA TRACE (Negative); Specific Gravity Urine UA <=1.005 (1.000-1.035); Urobilinogen Urine UA 0.2 E.U./dL (0.2)
[2024-01-17 15:54] LABS: Bacteria Urine Occasional (0-1); Culture Indicated Urine Cult Not Indicated; RBC Urine 10-30/HPF (0-5/HPF); Squamous Epithelial Cell Urine 0-1 /HPF (0-5/HPF); Urine Volume 10mL (spun); WBC Urine 5-10/HPF (0-5/HPF); pH Urine UA 5.5 (4.5-8.0)
== END ==
PROVIDERS: PCP Family Medicine; Referring Provider Urology; Visit Provider Urology
DX: R31.9 Hematuria, unspecified (principal)
CPT/HCPCS: 81001

== ENCOUNTER → 2024-01-30 14:44 | Outpatient (CLI) | payer OTHER, SELFPAY ==
--- NOTE | 2024-01-30 14:45 | DI.RAD.S_ITS ---
PROCEDURE: XR KUB INDICATIONS: kidney stones TECHNIQUE: One view of the abdomen acquired. COMPARISON: [facility], CT, CT ABDOMEN PELVIS W CON, 07/10/2023, 12:26. [facility], CR, XR KUB, 07/16/2023, 10:15. [facility], CR, XR KUB, 08/06/2023, 10:10. FINDINGS: Surgical changes and devices: None. Bowel: Bowel gas pattern is normal. Soft tissues: No suspicious abdominal calcifications. Visualized solid organ contours appear normal in size. Bones: No suspicious bony lesions. Postsurgical changes in the lower lumbar spine. IMPRESSION: 1. No definitive renal calculi can be seen on plain radiograph. If clinical suspicion is high or there is clinical concern for renal obstruction, consider renal ultrasound or CT KUB. Dictated by: Gustavo Coffey M.D. on 01/31/2024 at 12:55 Approved by: Gustavo Coffey M.D. on 01/31/2024 at 12:59
[2024-01-30 15:27] LABS: Appearance Urine UA CLOUDY; Bilirubin Urine UA NEGATIVE (NEGATIVE); Color Urine UA YELLOW; Glucose Urine UA NEGATIVE (Negative); Ketones Urine UA TRACE (NEGATIVE); Leukocyte Esterase Urine UA TRACE (NEGATIVE); Nitrite Urine UA NEGATIVE (Negative); Occult Blood Urine UA 3+ (Negative); Protein Urine UA 1+ (Negative); Specific Gravity Urine UA 1.015 (1.000-1.035); Urobilinogen Urine UA 0.2 E.U./dL (0.2)
[2024-01-30 15:50] LABS: Urine Volume 10mL (spun)
[2024-01-30 15:51] LABS: Bacteria Urine Few (2-10); Culture Indicated Urine Specimen Cultured; Mucus Urine 2+ (Negative); RBC Urine >100/HPF (0-5/HPF); Squamous Epithelial Cell Urine 0-1 /HPF (0-5/HPF); WBC Urine 0-1/HPF (0-5/HPF)
== END ==
PROVIDERS: PCP Family Medicine; Referring Provider Urology; Visit Provider Urology
DX: N20.2 Calculus of kidney with calculus of ureter (principal); R82.81 Pyuria
CPT/HCPCS: 74018; 81001; 87086

== ENCOUNTER → 2024-05-02 14:13 | Outpatient (CLI) | payer OTHER, SELFPAY ==
--- NOTE | 2024-05-02 14:16 | DI.RAD.S_ITS ---
PROCEDURE: XR LUMBAR SPINE 2-3V INDICATIONS: BACK PAIN TECHNIQUE: 3 views of the lumbar spine were acquired. COMPARISON: CT, CT ABDOMEN PELVIS W CON, 07/10/2023, 12:26. [facility], CR, L-SPINE 2-3 VIEWS, 06/29/2017, 13:04. FINDINGS: Bones: 5 [id number]-[id number] vertebrae are present. There is normal bony alignment maintained by posterior transverse fixation screws and vertical fixation rods spanning from L4 through S1, with interbody disc prosthesis devices at L4-5 and L5-S1.. No vertebral body compression fractures. No suspicious bony lesions. Soft tissues: Overlying bowel gas pattern is normal. No suspicious soft tissue calcifications. IMPRESSION: The fixation devices discussed above appear free of loosening or disruption and have been previously present since at least June 2017. No definite change in this area. Worsening degenerative disc disease is seen at L2-L3 with disc height reduction and irregularity of the endplates at this disc level margin. MR scanning may be warranted for more accurate assessment, and etiology is uncertain. Therefore contrast enhancement MR scanning may be warranted depending on the clinical status. Dictated by: Clemente Holt M.D. on 05/02/2024 at 16:42 Approved by: Clemente Holt M.D. on 05/02/2024 at 16:44
== END ==
PROVIDERS: PCP Family Medicine; Referring Provider Family Medicine; Visit Provider Family Medicine
DX: M54.50 Low back pain, unspecified (principal); M51.36 Other intervertebral disc degeneration, lumbar region; Z98.890 Other specified postprocedural states
CPT/HCPCS: 72100

== ENCOUNTER 2024-05-10 09:39 | Emergency (ER) | payer OTHER, SELFPAY ==
[2024-05-10 09:49] VITALS: BP 195/82; PULSE 85; RESP 17; TEMP 36.6; O2SAT 99; BMI 36.6
--- NOTE | 2024-05-10 09:57 | DI.US.S_ITS ---
PROCEDURE: US PERIPH VENOUS LOW EXTREM LT INDICATIONS: left behind knee pain TECHNIQUE: Real-time imaging, as well as color and pulse Doppler interrogation, were performed of the lower extremity deep veins from the inguinal ligament to the popliteal fossa, with documentation of the visualized calf veins. COMPARISON: None. FINDINGS: The common femoral, femoral, popliteal, and the visualized calf veins are normally compressible, and free of intraluminal thrombus. Color and pulse Doppler demonstrate normal phasic intraluminal flow. There is normal augmentation response to distal compression maneuver. IMPRESSION: No findings of lower extremity deep venous thrombosis. Dictated by: Clarisse Dumont M.D. on 05/10/2024 at 10:03 Approved by: Clarisse Dumont M.D. on 05/10/2024 at 10:04
--- NOTE | 2024-05-10 11:34 | ED.LOWEXIN ---
HPI - Extremity Injury (Lower) General Chief Complaint: Extremity Injury, Lower Stated Complaint: pain in back of right knee Time Seen by Provider: 05/10/24 11:08 History of Present Illness HPI Narrative: Patient complains of nondrinker left posterior knee pain. No prior history of surgery to the knee. No known injury. No new stressors to the knee. Has seen primary care and was prescribed meloxicam however pharmacy has not feel that it. Patient drove here. Denies any kidney failure or kidney problems. Has been taking a leave without success of relief. Patient has a cane at home but has not been using it. She drove here. Has ability to stand and bear weight in the room but does have antalgic gait. Has been shifting weight to her left lower extremity and straining her back and right lower extremity as well. Hip to ankle exposed. Left knee pain worse with bending it. Denies any leg or foot numbness tingling or weakness. No Related Data Home Medications Medication Instructions Recorded Confirmed omega 6-qfm-qlb-fish oil 1,000 mg 1,400 mg PO QDAY ##0 04/03/17 05/02/24 (120 mg-180 mg) capsule (Fish Oil) [Calicum ] 1,200 mg BID ##0 04/04/17 05/02/24 [Centrum Silver] 1 tab PO Q DAY ##0 04/04/17 05/02/24 [natural bounty hair ] 1 tab PO BID ##0 04/04/17 05/02/24 magnesium oxide 400 mg (241.3 mg 400 mg Q DAY ##0 04/04/17 05/02/24 magnesium) tablet loratadine 10 mg tablet 10 mg PO HS ##0 06/19/17 05/02/24 multivitamin 1 tab PO DAILY 07/17/23 05/02/24 potassium [Potassium-99] 99 mg PO DAILY 07/17/23 05/02/24 zinc PO 07/17/23 05/02/24 Previous Rx's Medication Instructions Recorded albuterol sulfate 90 mcg/actuation 2 puff inhalation Q4HP PRN asthma, 06/22/21 aerosol inhaler (Ventolin HFA) SOB #8.5 grams Disabled Parking #1 ea 09/21/23 estradiol 0.5 mg tablet 0.5 mg PO DAILY #90 tabs 10/01/23 medroxyprogesterone 2.5 mg tablet 2.5 mg PO DAILY #45 tabs 10/01/23 omeprazole 40 mg capsule,delayed 40 mg PO BID #180 caps 10/01/23 release simvastatin 20 mg tablet 20 mg PO ONCE PM #90 tabs 10/01/23 losartan 50 mg tablet 50 mg PO BID #180 tabs 12/17/23 meloxicam 7.5 mg tablet 7.5 mg PO DAILY #30 tabs 05/02/24 hydrocodone 5 mg-acetaminophen 325 1 tab PO Q6H PRN pain #12 tabs 05/10/24 mg tablet ondansetron 4 mg disintegrating 4 mg PO Q8H PRN nausea and 05/10/24 tablet vomiting #10 tabs Allergies Allergy/AdvReac Type Severity Reaction Status Date / Time Sulfa (Sulfonamide Allergy Severe MY GLANDS Verified 05/10/24 09:52 Antibiotics) SWELL, I [SULFA (SULFONAMIDE CAN'T TURN ANTIBIOTICS)] MY HEAD, FEEL SICK Review of Systems Review of Systems Narrative: GENERAL: negative chills, fatigue, malaise, fever, sweats. HEENT: negative sinus pain, ear pain, sore throat RESPIRATORY: negative dyspnea, cough CARDIOVASCULAR: negative chest pain, palpitations GASTROINTESTINAL: negative nausea, vomiting, abdominal pain : negative dysuria, frequency, hematuria MUSCULOSKELETAL: Positive muscle or bony pain SKIN: negative rash, skin lesions NEUROLOGIC: negative weakness, numbness Patient History Medical History History of hypercalcemia Calcium oxalate stones Arthritis Pyuria Elevated serum creatinine Right ureteral calculus Osteoarthritis Hypertension Lumbar spinal stenosis Surgical History Hx of cystoscopy (07/10/23) Anesthesia History of tonsillectomy Status post appendectomy (1956) S/P lumbar fusion (06/29/17) Family History Father No problems noted. Mother No problems noted. Grandmother Heart disease Grandfather Cancer Grandmother No problems noted. Grandfather Heart disease Social History marital status: number of children: 2 household members: other occupational status: previously employed Smoking Status: Never smoker second hand exposure: No alcohol intake: current substance use type: does not use caffeine: No Type(s) of exercise: walking frequency: daily Smoking Status: Never smoker alcohol intake frequency: holidays/special occasions only Substance Use Type: does not use Exam Narrative Exam Narrative: GENERAL: in no distress, not toxic not dyspneic HEAD: Normocephalic. CARDIOVASCULAR: Regular rate and rhythm RESPIRATORY: Clear to auscultation. Breath sounds equal bilaterally. No wheezes, rales, or rhonchi. EXTREMITIES: No gross deformities. Left hip to ankle exposed. Calf is nontender no palpable cords. Negative Homans test negative Andres test. Knee is nontender on palpation. Posterior knee is nontender. No erythema edema patient has pain with standing and bearing weight. With bending at the knee. There is pain but no laxity of the left knee with rotational stress of the left leg as well as lateral and medial stress, no pain of the knee with anterior and posterior stress of the left leg. BACK: No flank tenderness. Mild right greater than left lower paralumbar muscle tenderness.. No midline tenderness or step-off. NEURO: AOx4. Clear speech SKIN: Warm and dry PSYCH: Not anxious, is cooperative Initial Vital Signs Initial Vital Signs: Vital Signs Temperature 98 F 05/10/24 09:49 Pulse Rate 85 05/10/24 09:49 Respiratory Rate 17 05/10/24 09:49 Blood Pressure 195/82 H 05/10/24 09:49 Pulse Oximetry 99 05/10/24 09:49 Oxygen Delivery Method Room Air 05/10/24 09:49 Course Orders Ordered: ED Orders 05/10/24 09:57 US periph venous low extrem lt Stat 05/10/24 11:34 XR knee LT 3V Stat Discontinued Medications Ketorolac Tromethamine (Ketorolac 30 Mg/Ml Vial) 30 mg IM NOW ONE Stop: 05/10/24 11:35 Last Admin: 05/10/24 12:01 Dose: 30 mg Documented By: LINDA Vital Signs Vital signs: Vital Signs - 8 hr 05/10/24 09:49 05/10/24 13:09 Temperature 98 F Pulse Rate 85 80 Respiratory Rate 17 18 Blood Pressure 195/82 H 120/58 L Pulse Oximetry 99 96 Oxygen Delivery Method Room Air Room Air MDM - Extremity Injury (Lower) Imaging Data US - DVT: Radiologist's Impression: [address] [address] Ultrasound Report Signed Patient: María Smiley MR#: [id number] : 1945 Acct:[id number] Age/Sex: 78 / F Date of Service: 05/10/24 Loc: ED Accession Number: [id number] Procedure: US periph venous low extrem lt Ordering Provider: Cedric Jacob MD PROCEDURE: US PERIPH VENOUS LOW EXTREM LT INDICATIONS: left behind knee pain TECHNIQUE: Real-time imaging, as well as color and pulse Doppler interrogation, were performed of the lower extremity deep veins from the inguinal ligament to the popliteal fossa, with documentation of the visualized calf veins. COMPARISON: None. FINDINGS: The common femoral, femoral, popliteal, and the visualized calf veins are normally compressible, and free of intraluminal thrombus. Color and pulse Doppler demonstrate normal phasic intraluminal flow. There is normal augmentation response to distal compression maneuver. IMPRESSION: No findings of lower extremity deep venous thrombosis. Dictated by: Clarisse Dumont M.D. on 05/10/2024 at 10:03 Approved by: Clarisse Dumont M.D. on 05/10/2024 at 10:04 Extremity x-ray #1: Radiologist's Impression: [address] [address] XRay Report Signed Patient: María Smiley MR#: [id number] : 1945 Acct:[id number] Age/Sex: 78 / F Date of Service: 05/10/24 Loc: ED Accession Number: [id number] Procedure: XR knee LT 3V Ordering Provider: Alejandro Dunbar MD PROCEDURE: XR KNEE LT 3V INDICATIONS: Pain/swelling TECHNIQUE: 3 views of the knee were acquired. COMPARISON: None. FINDINGS: Bones: No fractures or dislocations. No suspicious bony lesions. A patellar cyst is present, likely degenerative. Soft tissues: No joint effusion. Arterial calcification is shown. IMPRESSION: No acute bony abnormality or significant effusion. Dictated by: Clarisse Dumont M.D. on 05/10/2024 at 11:04 Approved by: Clarisse Dumont M.D. on 05/10/2024 at 11:06 [facility] Narrative Medical decision making narrative: here. Denies any kidney failure or kidney problems. Has been taking a leave without success of relief. Patient has a cane at home but has not been using it. She drove here. Has ability to stand and bear weight in the room but does have antalgic gait. Has been shifting weight to her left lower extremity and straining her back and right lower extremity as well. Hip to ankle exposed. Left knee pain worse with bending it. Denies any leg or foot numbness tingling or weakness. No calf pain. After history and exam ultrasound left leg, x-ray left knee Toradol, patient not septic no fever. No blood work indicated at this time. [facility] Medical records reviewed: No recent visit for this complaint in the emergency department. Differential considered: Includes but not limited to DVT SVT osteoarthritis degenerative joint disease Imaging studies independently reviewed: Ultrasound left leg no acute finding no DVT X-ray left knee no acute finding Consultations: Referral for orthopedics will be provided Treatments: Toradol Re-evaluations: 12:24 p.m.. Updated patient results and findings and images finding. She does have primary care, Dr. Polo, to follow up with. She does have prescription for meloxicam to [facility]. From her primary care. Reviewed with her she will need MRI of the knee to be scheduled with her primary care. Referral for Orthopedics will be provided with Dr. Barillas. She does have a cane to use. She agrees for short course of pain medication for the weekend use until she sees her family doctor next week. Not toxic at discharge. She desires discharge home. Reviewed with patient patellar cyst may be incidental finding but may cause her pain. Reviewed with her she needs outpatient MRI and physical therapy referral by her primary care. Patient up and walking and states pain is better after Toradol Discussion: Appropriate for discharge home exam is reassuring. No laboratory/blood work indicated. No fever. Low suspicion at this time for septic joint. No fever. Ongoing for 1 week. Return precautions reviewed. She desires discharge home Diagnosis: Left knee pain Discharge Plan Departure Patient Disposition: Home Clinical Impression: Knee pain, left Qualifiers: Chronicity: acute Qualified Code(s): M25.562 - Pain in left knee Instructions: DI for Knee Pain Activity Restrictions/Additional Instructions: Please see your family doctor next week for re-evaluation. Please do fern picker the meloxicam prescription prescribed by your family doctor. Please call provided orthopedic office on Sunday as well for follow up evaluation and treatment for knee pain. Your primary care can order MRI of your knee. You may need physical therapy referral by your family doctor as well. Return if worse if any questions or concerns. Short course of pain medication has been prescribed for you. No driving operating machinery when using this medication. Prescriptions: New hydrocodone-acetaminophen 5-325 mg tablet 1 tab PO Q6H PRN (Reason: pain) Qty: 12 0RF ondansetron 4 mg tablet,disintegrating 4 mg PO Q8H PRN (Reason: nausea and vomiting) Qty: 10 0RF No Action (DME) Disabled Parking See Rx Instructions .ROUTE .MEDSUPPLY Qty: 1 0RF Rx Instructions: I find this patient to be medical disabled and qualified for Disabled Parking as indicated, and signed, on the and the Accompanying Disabled Parking Application for Individuals. meloxicam 7.5 mg tablet 7.5 mg PO DAILY Qty: 30 3RF omega 3-eet-grb-fish oil [Fish Oil] 1,000 MG capsule 1,400 mg PO QDAY Qty: 0 magnesium oxide 400 MG tablet 400 mg Q DAY Qty: 0 [Calicum ] 1,200 mg BID Qty: 0 [Centrum Silver] 1 tab PO Q DAY Qty: 0 [natural bounty hair ] 1 tab PO BID Qty: 0 loratadine 10 MG tablet 10 mg PO HS Qty: 0 albuterol sulfate [Ventolin HFA] 90 mcg/actuation HFA aerosol inhaler 2 puff inhalation Q4HP PRN (Reason: asthma, SOB) Qty: 8.5 1RF simvastatin 20 mg tablet 20 mg PO ONCE PM Qty: 90 3RF estradiol 0.5 mg tablet 0.5 mg PO DAILY Qty: 90 3RF medroxyprogesterone 2.5 mg tablet 2.5 mg PO DAILY Qty: 45 3RF omeprazole 40 mg capsule,delayed release(DR/EC) 40 mg PO BID Qty: 180 3RF losartan 50 mg tablet 50 mg PO BID Qty: 180 2RF multivitamin Tablet 1 tab PO DAILY zinc PO potassium [Potassium-99] 99 mg PO DAILY Referrals: Hyacinth Polo MD [Primary Care Provider] - Morgan Jasso MD [Physician] - Stand Alone Forms: Patient Portal/API
[2024-05-10] MEDS: KETOROLAC 30 MG/ML VIAL IM (12:01)
[2024-05-10 13:09] VITALS: BP 120/58; PULSE 80; RESP 18; O2SAT 96
== END 2024-05-10 13:09 | disposition home or self-care (01) ==
PROVIDERS: Emergency Provider Emergency Medicine; PCP Family Medicine
DX: M25.562 Pain in left knee (principal)
CPT/HCPCS: 73562; 93971; 96372; 99283; J1885

== ENCOUNTER → 2024-05-16 18:49 | Outpatient (CLI) | payer OTHER, SELFPAY ==
--- NOTE | 2024-05-16 18:52 | DI.MRI.S_ITS ---
PROCEDURE: MR LUMBAR SPINE WO CON INDICATIONS: low back pain, follow up TECHNIQUE: Noncontrast sagittal T1 spin echo and T2 fast echo, sagittal STIR, and T2 fast spin echo through the lumbar spine. In cases with scoliosis, additional coronal T2 fast spin echo may be performed. COMPARISON: [facility], CR, XR LUMBAR SPINE 2-3V, 05/02/2024, 14:29. [facility], MR, L-SPINE WITHOUT CONTRAST, 04/12/2017, 14:58. FINDINGS: Image quality: Diagnostic Alignment and Curvature: Stable bony alignment with persistent mild grade 1 anterolisthesis of L4 on L5. There are postsurgical changes of spinal fusion of L4 through S1 with bilateral pedicular screws and paraspinal rods fixation. Discectomies of the L4-5 and L5-S1 disc. There are intervertebral disc spacers. Bone Marrow: Marrow is of normal overall signal. No acute vertebral body compression fractures. Spinal Cord: Conus medullaris terminates at the L1 level. Visualized cord demonstrates normal signal and size. Paraspinous Soft Tissues: No paravertebral masses. T12-L1: Bilateral facet arthropathy. No significant neuroforaminal or spinal canal stenosis. L1-L2: Mild bilateral facet arthropathy. No significant neuroforaminal or spinal canal stenosis. L2-L3: Progression of spondylitic changes with moderate disc space loss and moderate degenerative endplate changes. There is loss of T2 disc signal intensity. Moderate disc bulge. Moderate bilateral facet arthropathy. Ligamentum flavum hypertrophy. Mild spinal canal stenosis. Moderate bilateral neuroforaminal stenosis. L3-L4: Moderate bilateral facet arthropathy and ligamentum flavum hypertrophy. Eccentric to the left disc bulge. There is minimal right and mild left bilateral neuroforaminal stenosis. No significant spinal canal stenosis. L4-L5: Moderate bilateral facet arthropathy. Ligamentum flavum hypertrophy. Minimal spinal canal stenosis. Mild right greater than left bilateral neuroforaminal stenosis. L5-S1: Bilateral facet arthropathy. Degenerative endplate changes. Minimal spinal canal stenosis. Severe left and moderate-severe right bilateral neuroforaminal stenosis. IMPRESSION: Lumbar spine without acute abnormalities. Postoperative changes of spinal fusion of L4 through S1 in stable alignment with persistent grade 1 anterolisthesis of L4 on L5. Multilevel, multifactorial lumbar spondylosis as detailed above by vertebral body level. Overall, degenerative changes have progressed compared to the prior MRI of 2016 which was obtained pre-surgical fusion. Findings are most severe at L2-3 and L5-S1. Dictated by: Jb Lewis M.D. on 05/19/2024 at 21:10 Approved by: Jb Lewis M.D. on 05/19/2024 at 21:24
--- NOTE | 2024-05-16 18:52 | DI.MRI.S_ITS ---
PROCEDURE: MR KNEE LT WO CON INDICATIONS: knee pain TECHNIQUE: Noncontrast sagittal PD fast spin echo and T2 fast spin echo with fat saturation, sagittal 3-D FLASH with fat saturation; coronal T1 spin echo and PD fast spin echo with fat saturation, and axial PD fast spin echo with fat saturation through the knee. COMPARISON: None. FINDINGS: Image quality: Excellent. Anterior cruciate ligament: Intact. Posterior cruciate ligament: Intact. Medial collateral ligament: Intact. Lateral collateral ligament: Intact. Medial meniscus: Deep radial tearing seen at the posterior horn of the medial meniscus. Some of the peripheral meniscal fibers appear to remain in continuity. There is mild extrusion of the meniscal body beyond the femorotibial joint line. Lateral meniscus: Suspected horizontal oblique tearing extending to the inner third of the femoral articular surface at the lateral meniscal body. Medial and lateral tendons: The semimembranosus tendon insertion demonstrates tendinosis and possible partial intrasubstance tearing. Visualized portions of the pes anserinus tendons appear normal. The popliteus tendon is intact. Iliotibial band appears normal. Anterior structures: The quadriceps and patellar tendons appear intact. No patellar subluxation. No femoral trochlear dysplasia or ventral trochlear prominence. No edema in the infrapatellar fat pad. Bones and cartilage: No bone marrow contusions or fractures. Medial femorotibial cartilage: Moderate partial-thickness cartilage thinning and irregularity in the weight-bearing portion of the medial femorotibial compartment. Lateral femorotibial cartilage: Mild partial-thickness cartilage irregularity at the posterior weight-bearing portion of the lateral tibial plateau. Patellofemoral cartilage: Moderate partial-thickness cartilage irregularity and cartilage fissuring at the median ridge and lateral facet of the patella with subchondral cystic changes. Partial-thickness cartilage irregularity is seen in the femoral trochlea. Soft tissues: There is a small joint effusion. Small medial popliteal cyst. Mild adjacent edema may indicate prior cyst rupture. Mild nonspecific subcutaneous edema surrounding the knee. The musculature is age-appropriate and bulk. And there is grade 2 fatty infiltration of the distal semimembranosus muscle and tendinosis at the distal insertion. IMPRESSION: 1. Deep radial tearing at the posterior horn of the medial meniscus with mild extrusion and intrasubstance degeneration within the meniscal body. 2. Suspected horizontal oblique tear at the body of the lateral meniscus extending to the inner third of the femoral articular surface. 3. Tendinosis and possible partial intrasubstance tearing at the distal semimembranosus tendon insertion. Grade 2 fatty infiltration of the semimembranosus muscle. 4. Cruciate and collateral ligaments are intact. No acute trabecular bone injury. 5. 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 Grade 2 chondromalacia in the lateral femorotibial compartment. 6. Small joint effusion. Small medial popliteal cyst with signs of possible prior cyst rupture. Approved by: Prakash Chiang M.D. on 05/19/2024 at 9:02
== END ==
LOC: MRI 18:50
PROVIDERS: PCP Family Medicine; Referring Provider Family Medicine; Visit Provider Family Medicine
DX: M48.061 Spinal stenosis, lumbar region without neurogenic claudication (principal); M48.07 Spinal stenosis, lumbosacral region; M47.816 Spondylosis without myelopathy or radiculopathy, lumbar region; M47.817 Spondylosis without myelopathy or radiculopathy, lumbosacral region; M43.16 Spondylolisthesis, lumbar region; S83.242A Other tear of medial meniscus, current injury, left knee, initial encounter; M22.42 Chondromalacia patellae, left knee; M71.22 Synovial cyst of popliteal space [Baker], left knee; M25.462 Effusion, left knee; M25.562 Pain in left knee; M54.9 Dorsalgia, unspecified; M19.90 Unspecified osteoarthritis, unspecified site; Z98.1 Arthrodesis status
CPT/HCPCS: 72148; 73721

== ENCOUNTER → 2024-07-07 15:54 | Outpatient (CLI) | payer OTHER, SELFPAY ==
--- NOTE | 2024-07-07 15:55 | DI.RAD.S_ITS ---
PROCEDURE: XR KUB INDICATIONS: History of kidney stone TECHNIQUE: One view of the abdomen acquired. COMPARISON: [facility], CR, XR KUB, 01/30/2024, 14:48. FINDINGS: Stool gas pattern: Large amount of colonic stool noted. Stomach small large bowel are normal caliber no evidence of obstruction. No free intraperitoneal or extraperitoneal air. No gross evidence of ascites Soft tissues: No abnormal calcifications. No soft tissue masses. Organs: No gross evidence for organomegaly. IMPRESSION: Moderate colonic stool compatible with constipation. No definite stones identified Dictated by: Guy Daniels M.D. on 07/08/2024 at 10:32 Approved by: Guy Daniels M.D. on 07/08/2024 at 10:33
[2024-07-07 17:45] LABS: BUN Creatinine Ratio 26.7 (6-22); Blood Urea Nitrogen 35 mg/dL (7-17); Calcium 9.7 mg/dL (8.4-10.2); Carbon Dioxide 18 mmol/L (22-32); Chloride 109 mmol/L (98-107); Estimated Glomerular Filt Rate 41 mL/min (>60); Glucose 85 mg/dL (80-110); HEMOLYSIS 41 (0-50); Sodium 138 mmol/L (137-145); Uric Acid 5.6 mg/dL (2.5-6.2)
== END ==
PROVIDERS: PCP Family Medicine; Referring Provider Urology; Visit Provider Urology
DX: R79.89 Other specified abnormal findings of blood chemistry (principal); N20.0 Calculus of kidney; Z86.39 Personal history of other endocrine, nutritional and metabolic disease; Z87.442 Personal history of urinary calculi
CPT/HCPCS: 36415; 74018; 80048; 84550

== ENCOUNTER → 2024-07-10 09:43 | Outpatient (CLI) | payer OTHER, SELFPAY | PROVIDERS: PCP Family Medicine; Visit Provider Urology | DX: N20.2 Calculus of kidney with calculus of ureter (principal); R82.81 Pyuria; R79.89 Other specified abnormal findings of blood chemistry; Z86.39 Personal history of other endocrine, nutritional and metabolic disease; Z79.890 Hormone replacement therapy | CPT/HCPCS: 81002; 87086; 99214 ==

== ENCOUNTER → 2024-09-02 11:15 | Outpatient (CLI) | payer OTHER, SELFPAY ==
--- NOTE | 2024-09-02 11:32 | EKG_ITS ---
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
== END ==
PROVIDERS: PCP Family Medicine; Referring Provider Orthopaedic Surgery Adult Reconstructive Orthopaedic Surgery; Visit Provider Orthopaedic Surgery Adult Reconstructive Orthopaedic Surgery
DX: Z01.818 Encounter for other preprocedural examination (principal)
CPT/HCPCS: 93005

== ENCOUNTER → 2024-12-24 11:30 | Outpatient (CLI) | payer OTHER, SELFPAY ==
--- NOTE | 2024-12-24 11:33 | DI.RAD.S_ITS ---
PROCEDURE: XR KUB INDICATIONS: Rule out recurrent stones TECHNIQUE: One view of the abdomen acquired. COMPARISON: [facility], CR, XR KUB, 07/07/2024, 16:03. [facility], CR, XR KUB, 01/30/2024, 14:48. FINDINGS: Surgical changes and devices: Lumbar spine fixation hardware. Bowel: Bowel gas pattern is normal. Soft tissues: No suspicious abdominal calcifications. Visualized solid organ contours appear normal in size. Bones: No suspicious bony lesions. IMPRESSION: No definite renal stones are seen. Dictated by: Theo Colon M.D. on 12/24/2024 at 14:46 Approved by: Theo Colon M.D. on 12/24/2024 at 14:59
--- NOTE | 2024-12-24 11:34 | DI.MG.S_ITS ---
MM screening mammo BI: 12/24/2024. BI-RADS: 1 CLINICAL: 79-year old female for bilateral screening mammogram. Tyrer-Cuzick lifetime risk of 1.1%. No personal or first-degree family history of breast cancer. PRIOR EXAMS 12/14/2023, 11/17/2022, 10/07/2021, 09/29/2020, 09/23/2019, 09/04/2018, 04/27/2017. MAMMOGRAPHY TECHNIQUE: 2D and 3D (tomosynthesis) digital mammographic views obtained, with additional images as needed for full coverage. Current study was also evaluated with a Computer Aided Detection (CAD) system. DENSITY B. There are scattered areas of fibroglandular density. MAMMOGRAPHY FINDINGS Bilateral: No suspicious mass, asymmetry, microcalcification, or other abnormality seen. IMPRESSION: * No evidence of malignancy. RECOMMENDATIONS Bilateral * Annual screening mammography. OVERALL ASSESSMENT CATEGORY BI-RADS-1: Negative. The [employer] recommends annual screening mammography beginning at age 40 for women with average risk of breast cancer. ELECTRONICALLY SIGNED: Guera Perez M.D. on 12/26/2024 at 08:40:40 AM PT Interpreting Station ID: [id number]
[2024-12-24 13:37] LABS: BUN Creatinine Ratio 27.6 (6-22); Blood Urea Nitrogen 40 mg/dL (7-17); Calcium 10.2 mg/dL (8.4-10.2); Carbon Dioxide 20 mmol/L (22-32); Chloride 104 mmol/L (98-107); Estimated Glomerular Filt Rate 36 mL/min (>60); Glucose 71 mg/dL (70-99); HEMOLYSIS < 15 (0-50); Potassium 4.6 mmol/L (3.4-5.1); Sodium 136 mmol/L (137-145)
== END ==
PROVIDERS: PCP Family Medicine; Referring Provider Urology; Visit Provider Urology
DX: Z12.31 Encounter for screening mammogram for malignant neoplasm of breast (principal); R79.89 Other specified abnormal findings of blood chemistry; Z87.442 Personal history of urinary calculi; Z86.39 Personal history of other endocrine, nutritional and metabolic disease
CPT/HCPCS: 36415; 74018; 77063; 77067; 80048

== ENCOUNTER → 2025-07-08 15:41 | Outpatient (CLI) | payer OTHER, SELFPAY ==
--- NOTE | 2025-07-08 15:43 | DI.RAD.S_ITS ---
PROCEDURE: XR KUB one view INDICATIONS: Recurrent stones, nephrolithiasis per notes TECHNIQUE: One view of the abdomen acquired. COMPARISON: [facility], CR, XR KUB, 12/24/2024, 11:32. FINDINGS: Artifacts from overlying clothing and other extrinsic artifacts partially limit radiographic detail. Moderate amount of stool throughout the colon and rectum in a pattern of constipation possible obstipation. Lower lumbar spine pedicle screws posterior fixation rods and intervertebral metallic cage again noted unchanged. No abnormally dilated bowel no abnormal calcifications. IMPRESSION: Pattern of constipation/possible obstipation. No gross radiographic evidence of abnormal calcifications. Otherwise no significant change. If symptoms persist or worsen, or there is high clinical suspicion of abdominal pelvic abnormality CT could be performed. Dictated by: Layton Gannon M.D. on 07/09/2025 at 22:31 Approved by: Layton Gannon M.D. on 07/09/2025 at 22:34
[2025-07-08 17:17] LABS: Blood Urea Nitrogen 28 mg/dL (7-17); Calcium 9.7 mg/dL (8.4-10.2); Carbon Dioxide 18 mmol/L (22-32); Chloride 109 mmol/L (98-107); Estimated Glomerular Filt Rate 43 mL/min (>60); Glucose 103 mg/dL (70-99); HEMOLYSIS < 15 (0-50); Potassium 4.3 mmol/L (3.4-5.1); Sodium 139 mmol/L (137-145)
== END ==
PROVIDERS: PCP Family Medicine; Referring Provider Urology; Visit Provider Urology
DX: R79.89 Other specified abnormal findings of blood chemistry (principal); Z87.442 Personal history of urinary calculi
CPT/HCPCS: 36415; 74018; 80048

== ENCOUNTER 2025-07-10 15:01 | Observation (INO) | payer OTHER, SELFPAY ==
[2025-07-10] VITALS (18 sets, daily range): BP systolic 143–217; BP diastolic 65–104; PULSE 76–105; RESP 15–24; TEMP 36.6; O2SAT 96–100; BMI 36.6
--- NOTE | 2025-07-10 15:13 | ED_ITS ---
HPI - Neuro Symptoms/Deficit
--- NOTE | 2025-07-10 15:13 | ED.NEUROSD ---
HPI - Neuro Symptoms/Deficit General Chief Complaint: Neuro Symptoms/Deficit Stated Complaint: no vision out of rt eye Time Seen by Provider: 07/10/25 15:08 History of Present Illness HPI Narrative: Patient is an 79-year-old female history of chronic kidney disease, hyperlipidemia arthritis presenting today as a code stroke. She reports sudden visual loss between 10 30 and 11. She says she was in her kitchen when suddenly she lost her vision. She went to the pipeliner who dilated her eye and ultimately sent her to the emergency department for further evaluation, concern for CVA. She is not on any anticoagulation. She has no other weakness or confusion. Related Data Home Medications ?Medication ?Instructions ?Recorded ?Confirmed omega 7-ykh-pey-fish oil 1,000 mg 1,400 mg PO QDAY ##0 04/03/17 07/10/25 (120 mg-180 mg) capsule (Fish Oil) [Calicum ] 1,200 mg PO BID leg cramps ##0 04/04/17 07/10/25 [Centrum Silver] 1 tab PO Q DAY ##0 04/04/17 07/10/25 [natural bounty hair ] 1 tab PO BID ##0 04/04/17 07/10/25 magnesium oxide 400 mg (241.3 mg 400 mg PO Q DAY ##0 04/04/17 07/10/25 magnesium) tablet loratadine 10 mg tablet 10 mg PO HS ##0 06/19/17 07/10/25 Held on 07/10/25. Instructions: Order Change multivitamin 1 tab PO DAILY 07/17/23 07/10/25 potassium [Potassium-99] 99 mg PO DAILY 07/17/23 07/10/25 zinc PO 07/17/23 06/29/25 Previous Rx's ?Medication ?Instructions ?Recorded albuterol sulfate 90 mcg/actuation 2 puff inhalation Q4HP PRN asthma, 06/22/21 aerosol inhaler (Ventolin HFA) SOB #8.5 grams Disabled Parking #1 ea 09/21/23 ropinirole 0.25 mg tablet 0.25 mg PO BEDTIME #30 tabs 08/05/24 Held on 07/10/25. Instructions: Change in level of care simvastatin 20 mg tablet 20 mg PO QPM #90 tabs 08/28/24 diphenhydramine HCl 25 mg capsule 25 mg PO 3XD PRN for itch #30 caps 09/10/24 (Banophen) omeprazole 40 mg capsule,delayed 40 mg PO BID #180 caps 10/28/24 release estradiol 0.5 mg tablet 0.5 mg PO DAILY #90 tabs 11/26/24 medroxyprogesterone 2.5 mg tablet 2.5 mg PO DAILY #45 tabs 11/26/24 losartan 50 mg tablet 50 mg PO BID #180 tabs 05/18/25 hydrocodone 5 mg-acetaminophen 325 1 tab PO Q6H PRN pain #30 tabs 07/07/25 mg tablet Allergies Allergy/AdvReac Type Severity Reaction Status Date / Time Sulfa (Sulfonamide Allergy Severe MY GLANDS Verified 07/10/25 15:13 Antibiotics) (SULFA SWELL, I (SULFONAMIDE ANTIBIOTICS)) CAN'T TURN MY HEAD, FEEL SICK Patient History Medical History (Updated 07/10/25 @ 20:37 by Linda Ayoub DO) Proteinuria History of hypercalcemia Calcium oxalate stones Arthritis Pyuria Elevated serum creatinine Right ureteral calculus Osteoarthritis Hypertension Lumbar spinal stenosis Surgical History Hx of cystoscopy (07/10/23) Anesthesia History of tonsillectomy Status post appendectomy (1956) S/P lumbar fusion (06/29/17) Family History Father No problems noted. Mother No problems noted. Grandmother Heart disease Grandfather Cancer Grandmother No problems noted. Grandfather Heart disease Social History marital status: number of children: 2 household members: other occupational status: previously employed Smoking Status: Never smoker second hand exposure: No alcohol intake: current substance use type: does not use caffeine: No Type(s) of exercise: walking frequency: daily alcohol intake frequency: holidays/special occasions only Exam Initial Vital Signs Initial Vital Signs: Vital Signs Temperature 97.9 F 07/10/25 15:13 Pulse Rate 98 H 07/10/25 15:13 Respiratory Rate 20 07/10/25 15:13 Blood Pressure 143/100 H 07/10/25 15:13 Pulse Oximetry 98 11/07/25 15:13 Oxygen Delivery Method Room Air 07/10/25 15:13 GENERAL: Alert pleasant anxious 79-year-old female and in no acute distress. HEENT: Head atraumatic,EOMI, pupils reactive, face symmetric, moist mucous membranes CARDIOVASCULAR: Regular rate and rhythm without murmurs, rubs or gallops. RESPIRATORY: Breath sounds equal bilaterally, no wheezes rales or rhonchi. ABDOMEN: Soft, nontender. Normoactive bowel sounds all 4 quadrants. No guarding or rebound. EXTREMITIES: Normal range of motion, no clubbing or edema. Neurovascularly intact NEUROLOGICAL: Alert and oriented x4.Normal gait and speech. Cranial nerves II through XII grossly intact. Good [id number], good bjga-cx-epek, strength equal bilaterally, no dysarthria or aphasia, sensation in tact to soft touch bilaterally, no visual changes, no facial droop complete loss of vision out of right eye SKIN: Warm, dry, no laceration, no petechiae, no rashes or lesions. Scores NIH Stroke Scale Level of Conciousness: Alert, keenly responsive Ask month/age: Answers both questions correctly. Open/close eyes, close hand: Performs both tasks correctly Best gaze horizontal: Normal Visual pierce: Complete hemianopia Facial palsy: Normal symetrical movement Left arm drift: No drift for full 10 sec Right arm drift: No drift for full 10 sec Left leg drift: No drift for full 5 sec Right leg drift: No drift for full 5 sec Limb ataxia: Absent Sensory on face/arms/legs: Normal, no sensory loss Best language: No aphasia, normal Dysarthria: Normal Extinction or inattention: No abnormality Total NIH Stroke scale score: 2 Course Orders Ordered: ED Orders 07/10/25 15:10 Complete Blood Count AUTO DIFF Stat Comprehensive Metabolic Panel Stat Ethanol (ETOH) Stat PTT Partial Thromboplastin Vega Stat Prothrombin Time INR Stat Troponin & CK Cardiac Panel Stat 07/10/25 15:[address] angio head and neck Stat EKG-12 Lead Stat 07/10/25 15:52 COVID19 -Nasal RAPID Stat 07/10/25 16:14 MR head/brain wo con Stat 07/10/25 16:55 Urine Drug Screen, Rapid Stat Urine Microscopic Stat Acetaminophen (Acetaminophen 325 Mg Tablet) 650 mg PO Q6H PRN PRN Reason: Fever/Mild Pain (1-3) Aspirin (Aspirin Ec 325 Mg Tablet) 325 mg PO DAILY [facility] Atorvastatin Calcium (Atorvastatin 20 Mg Tablet) 10 mg PO BEDTIME [facility] Clopidogrel Bisulfate (Clopidogrel 75 Mg Tablet) 75 mg PO DAILY [facility] Enoxaparin Sodium (Enoxaparin 40 Mg/0.4 Ml Syringe) 40 mg SUBCUT DAILY [facility] Sodium Chloride (Normal Saline 0.9%) 1,000 mls @ 100 mls/hr IV CONT [facility] Losartan Potassium (Losartan 50 Mg Tablet) 50 mg PO BID [facility] Naloxone HCl (Naloxone 0.4 Mg/Ml Vial) 0.2 mg IV Q2MIN PRN PRN Reason: Opiate Reversal Non-Formulary Medication (Suzetrigine) 50 mg PO Q12H [facility] Last Admin: 07/10/25 22:49 Dose: Not Given Documented By: BERENICE Pantoprazole Sodium (Pantoprazole Dr 40 Mg Tablet) 40 mg PO BID [facility] Ropinirole HCl (Ropinirole 0.25 Mg Tablet) 0.25 mg PO BEDTIME [facility] Discontinued Medications Aspirin (Aspirin 81 Mg Chew Tab) 324 mg PO NOW ONE Stop: 07/10/25 16:15 Last Admin: 07/10/25 17:06 Dose: 324 mg Documented By: JULIAN Clopidogrel Bisulfate (Clopidogrel 75 Mg Tablet) 300 mg PO NOW ONE Stop: 07/10/25 19:20 Last Admin: 07/10/25 19:35 Dose: 300 mg Documented By: JULIAN Vital Signs Vital signs: Vital Signs - 8 hr 07/10/25 15:13 07/10/25 15:26 07/10/25 15:26 Temperature 97.9 F Pulse Rate 98 H 105 H Respiratory Rate 20 20 Blood Pressure 143/100 H 143/100 H Pulse Oximetry 98 100 Oxygen Delivery Method Room Air 07/10/25 15:30 07/10/25 15:30 07/10/25 16:00 Temperature Pulse Rate 94 H 86 Respiratory Rate 18 20 Blood Pressure 162/104 H Pulse Oximetry 98 98 Oxygen Delivery Method 07/10/25 16:00 07/10/25 16:30 07/10/25 16:30 Temperature Pulse Rate 81 Respiratory Rate 19 Blood Pressure 161/74 H 202/86 H Pulse Oximetry 98 Oxygen Delivery Method 07/10/25 16:56 07/10/25 16:56 07/10/25 17:00 Temperature Pulse Rate 85 83 Respiratory Rate 21 Blood Pressure 192/85 H Pulse Oximetry 98 99 Oxygen Delivery Method 07/10/25 17:00 07/10/25 17:30 07/10/25 17:31 Temperature Pulse Rate 82 Respiratory Rate 23 Blood Pressure 217/81 H 147/65 H Pulse Oximetry 96 Oxygen Delivery Method 07/10/25 17:31 07/10/25 18:21 07/10/25 18:23 Temperature Pulse Rate 83 81 81 Respiratory Rate 23 16 Blood Pressure Pulse Oximetry 97 99 99 Oxygen Delivery Method 07/10/25 18:23 07/10/25 18:30 07/10/25 18:30 Temperature Pulse Rate 82 Respiratory Rate 24 Blood Pressure 159/70 H 158/71 H Pulse Oximetry 99 Oxygen Delivery Method 07/10/25 19:00 07/10/25 19:00 07/10/25 19:16 Temperature Pulse Rate 84 Respiratory Rate 15 Blood Pressure 168/80 H 183/77 H Pulse Oximetry 99 Oxygen Delivery Method 07/10/25 19:16 07/10/25 19:30 07/10/25 20:00 Temperature Pulse Rate 90 79 82 Respiratory Rate 20 15 21 Blood Pressure Pulse Oximetry 97 98 Oxygen Delivery Method 07/10/25 20:30 Temperature Pulse Rate 83 Respiratory Rate 24 Blood Pressure Pulse Oximetry 99 Oxygen Delivery Method MDM - Neuro Symptoms/Deficit Lab Data 07/10/25 15:10 07/10/25 15:10 Labs: Lab Results 07/10/25 07/10/25 07/10/25 Range/Units 15:09 15:10 15:52 WBC 6.6 (4.5-11.0) X10^3/uL RBC 4.19 (4.0-5.2) X10^6/uL Hgb 12.1 (12.0-16.0) g/dL Hct 36.1 (36-46) % MCV 86.0 (80-100) fL MCH 28.8 (26-34) PG MCHC 33.5 (30-36) % RDW 14.2 (11.6-14.8) % Plt Count 324 (150-400) X10^3/uL Neut % (Auto) 54.3 (50-75) % Lymph % (Auto) 35.2 (25-40) % Mason % (Auto) 6.9 (3-14) % Eos % (Auto) 3.1 (2-4) % Baso % (Auto) 0.5 (0-2) % Neut # (Auto) 3600 (9781-0859) /uL Lymph # (Auto) 2300 (8746-8321) /uL Mason # (Auto) 500 (0-900) /uL Eos # (Auto) 200 (0-450) /uL Baso # (Auto) 0 (0-100) /uL PT 11.2 (9.4-12.5) SECONDS INR 1.0 (0.9-1.3) APTT 35 (25.1-36.5) SECONDS Sodium 143 (137-145) mmol/L Potassium 4.5 (3.4-5.1) mmol/L Chloride 111 H (98-107) mmol/L Carbon Dioxide 20 L (22-32) mmol/L BUN 28 H (7-17) mg/dL Creatinine 1.25 H (0.52-1.04) mg/dL Estimated GFR 44 L (>60) mL/min BUN/Creatinine Ratio 22.4 H (6-22) Glucose 121 H (70-99) mg/dL POC Whole Bld Glucose 116 H (70-99) mg/dL Calcium 10.3 H (8.4-10.2) mg/dL Total Bilirubin 0.3 (0.2-1.3) mg/dL AST 36 (14-36) IU/L ALT 28 (<35) IU/L Alkaline Phosphatase 85 (38-126) U/L Total Creatine Kinase 93 (30-135) U/L Troponin I < 0.012 (0.01-0.034) ng/mL Total Protein 8.7 H (6.3-8.2) g/dL Albumin 5.0 (3.5-5.0) g/dL Globulin 3.7 (1.7-4.1) g/dL Albumin/Globulin Ratio 1.4 (1.0-2.8) Urine RBC (0-5/HPF) Urine WBC (0-5/HPF) Ur Squamous Epith Cells (0-5/HPF) Urine Bacteria (None) Urine Yeast (None) Ur Culture Indicated? Vol Urine Centrifuged U Opiates 300ng/mL cut (Negative) Ur Oxycodone Screen (Negative) Urine Methadone Screen (Negative) Ur Barbiturates Screen (Negative) U Tricyclic Antidepress (Negative) Ur Phencyclidine Scrn (Negative) Ur Amphetamines Screen (Negative) U Methamphetamines Scrn (Negative) Ur MDMA Scrn (Ecstasy) (Negative) U Benzodiazepines Scrn (Negative) Urine Cocaine Screen (Negative) U Marijuana (THC) Screen (Negative) Urine pH (Normal) Urine Specific Robards (Normal) Ethyl Alcohol < 10 (<10) mg/dL Ur Creatinine (Normal) SARS-CoV-2 (PCR) Negative (Negative) 07/10/25 Range/Units 16:55 WBC (4.5-11.0) X10^3/uL RBC (4.0-5.2) X10^6/uL Hgb (12.0-16.0) g/dL Hct (36-46) % MCV (80-100) fL MCH (26-34) PG MCHC (30-36) % RDW (11.6-14.8) % Plt Count (150-400) X10^3/uL Neut % (Auto) (50-75) % Lymph % (Auto) (25-40) % Mason % (Auto) (3-14) % Eos % (Auto) (2-4) % Baso % (Auto) (0-2) % Neut # (Auto) (3229-0012) /uL Lymph # (Auto) (9594-7302) /uL Mason # (Auto) (0-900) /uL Eos # (Auto) (0-450) /uL Baso # (Auto) (0-100) /uL PT (9.4-12.5) SECONDS INR (0.9-1.3) APTT (25.1-36.5) SECONDS Sodium (137-145) mmol/L Potassium (3.4-5.1) mmol/L Chloride (98-107) mmol/L Carbon Dioxide (22-32) mmol/L BUN (7-17) mg/dL Creatinine (0.52-1.04) mg/dL Estimated GFR (>60) mL/min BUN/Creatinine Ratio (6-22) Glucose (70-99) mg/dL POC Whole Bld Glucose (70-99) mg/dL Calcium (8.4-10.2) mg/dL Total Bilirubin (0.2-1.3) mg/dL AST (14-36) IU/L ALT (<35) IU/L Alkaline Phosphatase (38-126) U/L Total Creatine Kinase (30-135) U/L Troponin I (0.01-0.034) ng/mL Total Protein (6.3-8.2) g/dL Albumin (3.5-5.0) g/dL Globulin (1.7-4.1) g/dL Albumin/Globulin Ratio (1.0-2.8) Urine RBC >100/hpf H (0-5/HPF) Urine WBC 0-1/hpf (0-5/HPF) Ur Squamous Epith Cells None seen (0-5/HPF) Urine Bacteria Few (2-10) H (None) Urine Yeast 5-10/hpf H (None) Ur Culture Indicated? Cult not indicated Vol Urine Centrifuged 10ml (spun) U Opiates 300ng/mL cut Negative (Negative) Ur Oxycodone Screen Negative (Negative) Urine Methadone Screen Negative (Negative) Ur Barbiturates Screen Negative (Negative) U Tricyclic Antidepress Negative (Negative) Ur Phencyclidine Scrn Negative (Negative) Ur Amphetamines Screen Negative (Negative) U Methamphetamines Scrn Negative (Negative) Ur MDMA Scrn (Ecstasy) Negative (Negative) U Benzodiazepines Scrn Negative (Negative) Urine Cocaine Screen Negative (Negative) U Marijuana (THC) Screen Negative (Negative) Urine pH Normal (Normal) Urine Specific Robards Normal (Normal) Ethyl Alcohol (<10) mg/dL Ur Creatinine Normal (Normal) SARS-CoV-2 (PCR) (Negative) Urine Dip Bedside Urine Glucose Negative Bedside Urine Bilirubin - Negative Bedside Urine Ketone - Negative Urine Specific Robards 1.010 Bedside Urine Occult Blood +++ Bedside Urine pH 6.0 Bedside Urine Protein + 30 Bedside Urine Urobilinogen - Negative Bedside Urine Nitrite - Negative Bedside Urine Leukocytes - Negative Esterase Imaging Data CT scan - head: Radiologist's Impression: PROCEDURE: CT STROKE INDICATIONS: can't see right eye TECHNIQUE: Noncontrast 4.5 mm thick angled axial sections acquired from the foramen magnum to the vertex, with coronal reformats. For radiation dose reduction, the following was used: automated exposure control, adjustment of mA and/or kV according to patient size. COMPARISON: None. FINDINGS: Image quality: Diagnostic. CSF spaces: Basal cisterns are patent. No extra-axial fluid collections. The ventricles are symmetric in size and shape. Brain: No intracranial bleeds or mass effect. There is cerebral volume loss, with resultant ventricular and sulcal prominence. There are periventricular and deep white matter chronic small vessel ischemic changes. There is intracranial internal carotid artery atherosclerosis. Skull and face: Calvarium and visualized facial bones appear intact, without suspicious lesions. Sinuses: Visualized sinuses and mastoids are clear. IMPRESSION: 1. No acute intracranial pathology. 2. Age related volume loss and mild white matter small vessel chronic ischemic changes. Findings were reported to ordering clinician at the time of dictation. This study fulfills neurological imaging criteria for inclusion or exclusion of acute stroke therapies based on available published neurological guidelines. Dictated by: Deniz Ordonez M.D. on 07/10/2025 at 15:27 CTA - brain/neck: Radiologist's Impression: PROCEDURE: CT ANGIO HEAD AND NECK INDICATIONS: can't see right eye TECHNIQUE: After the administration of intravenous contrast, 1 mm thick sections acquired from the aortic arch through the [place]. 3-dimensional wraxheu-hipbeuvrz-shezbopkso (MIP) and/or volume rendering reformats were acquired of the central intracranial vasculature and neck separately. For radiation dose reduction, the following was used: automated exposure control, adjustment of mA and/or kV according to patient size. COMPARISON: None. FINDINGS: Image quality: Diagnostic. Cerebral CT Angiogram: Internal carotid arteries: No acute findings. Intracranial ICA are patent with no significant stenosis. No occlusion. No aneurysm. Anterior cerebral arteries: Unremarkable. No significant stenosis. No occlusion. No aneurysm. Middle cerebral arteries: Unremarkable. No significant stenosis. No occlusion. No aneurysm. Posterior cerebral arteries: Unremarkable. No significant stenosis. No occlusion. No aneurysm. Basilar artery: Unremarkable. No significant stenosis. No occlusion. No aneurysm. Vertebral arteries: Unremarkable as visualized. Dural venous sinuses: Unremarkable given phase of enhancement. Other: Arterial phase appearance of the brain parenchyma is unremarkable. Neck CT Angiogram: Internal carotid arteries: Unremarkable. No significant stenosis. No dissection or occlusion. Common carotid arteries: Unremarkable. No significant stenosis. No dissection or occlusion. External carotid arteries: Unremarkable. No occlusion. Vertebral arteries: Unremarkable. No significant stenosis. No dissection or occlusion. Aortic Arch and Mediastinum: Partially visualized aortic arch unremarkable without evidence of aneurysm. Origins of the great vessels unremarkable. Other: Arterial phase soft tissues of the neck and chest are unremarkable. Asymmetrically enlarged right thyroid lobe with heterogeneous enhancement is seen and may represent nodular goiter. IMPRESSION: 1. No significant intracranial arterial abnormality is seen. 2. No significant abnormality is seen within the arteries of the neck. Any quantitative measurements of stenosis were performed using NASCET criteria. Dictated by: Deniz Ordonez M.D. on 07/10/2025 at 15:32 MR brain: Radiologist's Impression: PROCEDURE: MR HEAD/BRAIN WO CON INDICATIONS: right eye vision loss TECHNIQUE: Non-contrast axial T1 spin echo, axial T2 fast spin echo, sagittal and axial FLAIR, coronal T2 fast spin echo, axial gradient echo, axial diffusion and ADC through the brain. COMPARISON: [facility], CT, CT ANGIO HEAD AND NECK, 07/10/2025, 15:18. [facility], CT, CT STROKE, 07/10/2025, 15:18. FINDINGS: Image quality: Excellent. CSF spaces: Ventricles appear symmetric in size and shape. Basal cisterns are patent. No extra-axial fluid collections. Brain: No intracranial bleeds or mass effects. There is cerebral volume loss for age. There are [id number]-eeaqxrae periventricular and deep white matter chronic small vessel ischemic changes. Brainstem appears normal. Diffusion-weighted images show no acute infarct. No chronic ischemic insults. Normal intravascular flow voids are present. Skull and face: Calvarial bone marrow is normal in signal. Orbits are normal. Sinuses: Sinuses and mastoids are clear. IMPRESSION: No acute intracranial process. Hsbj-si-suxfogiq small vessel ischemic change. Dictated by: Modesto Dunlap M.D. on 07/10/2025 at 18:58 ECG Data Attestation: I personally reviewed and interpreted this ECG as follows: Prior ECG tracings: available for review Interpretation: Normal sinus rhythm rate 90 UT interval 154 QRS [address] changes no T-wave inversions similar to prior EKGs MDM Narrative Medical decision making narrative: MDM CC: Right visual loss Complicating co-morbidities: Hypertension hyperlipidemia chronic kidney disease Data collected from: Patient Medical records reviewed: PCP note from 06/29/2025, chronic lumbar back pain avoiding NSAIDs Differential considered: Retinal artery occlusion calm CVA, TIA, retinal detachment Exam documented above, pertinent findings include: Right eye is dilated compared to the left has complete visual loss out of the right eye NIH of 2. No other focal deficits Lab Test results independently reviewed as above. Pertinent findings: CBC no leukocytosis no anemia CMP stable electrolytes carbon dioxide is 20 previously was 18 creatinine 1.25 which is stable previously 1.27 calcium just above normal at 10.3 Troponin is negative Bilirubin liver enzymes within normal limits Independently reviewed EKG as above Sinus rhythm without ischemia Imaging studies independently reviewed: Head CT no intracranial hemorrhage CT angio no large vessel occlusion MRI no acute infarct Consultations: 1914 Neuro brandie, tterecommend stayin asa and plavix x [address] Munoz kindly accepts patient Treatments: Aspirin, plavix Re-evaluations: Patient continues to have visual loss. Discussion: Patient 79-year-old female presenting today as code stroke fellow she is out of the window for thrombolytics. She was seen and evaluated by an pipeliner who dilated her eye determine that this is not an ophthalmology problem concern for CVA. Patient is quite adamant that she is going home to her dog. She is agreeable to stay for an MRI. He previously had an MRI in 2023 she is not claustrophobic. MRI does not show any acute stroke but still not able to see out of her right eye. I spoke with Neurology who do recommend that patient stay. Also recommend aspirin Plavix for 21 days recommend a echocardiogram. Discussed risks and benefits with patient she is agreeable to stay Discharge Plan Departure Patient Disposition: Admitted as Observation Clinical Impression: CVA (cerebral vascular accident) Admit Date/Time: 07/10/25 20:37 Admit Provider: Hal Munoz
--- NOTE | 2025-07-10 15:16 | EKG_ITS ---
[facility]
--- NOTE | 2025-07-10 15:16 | DI.CT.S_ITS ---
PROCEDURE: CT STROKE
--- NOTE | 2025-07-10 15:16 | DI.CT.S_ITS ---
PROCEDURE: CT ANGIO HEAD AND NECK
[2025-07-10 15:24] LABS: Add Manual Diff / Slide Review NO; Hematocrit 36.1 % (36-46); Hemoglobin 12.1 g/dL (12.0-16.0); Lymphocytes Absolute Auto 2300 /uL (1100-4500); Mean Corpuscular HGB Conc 33.5 % (30-36); Mean Corpuscular Hemoglobin 28.8 PG (26-34); Mean Corpuscular Volume 86.0 fL (80-100); Platelet Count 324 X10^3/uL (150-400)
[2025-07-10 15:38] LABS: Alanine Aminotransferase 28 IU/L (<35); Albumin 5.0 g/dL (3.5-5.0); Albumin Globulin Ratio 1.4 (1.0-2.8); Alkaline Phosphatase 85 U/L (38-126); Blood Urea Nitrogen 28 mg/dL (7-17); Calcium 10.3 mg/dL (8.4-10.2); Carbon Dioxide 20 mmol/L (22-32); Chloride 111 mmol/L (98-107); Creatine Kinase 93 U/L (30-135); Estimated Glomerular Filt Rate 44 mL/min (>60); Ethanol (ETOH) < 10 mg/dL (<10); Globulin 3.7 g/dL (1.7-4.1); Glucose 121 mg/dL (70-99); HEMOLYSIS < 15 (0-50); Potassium 4.5 mmol/L (3.4-5.1); Sodium 143 mmol/L (137-145); Total Protein 8.7 g/dL (6.3-8.2)
[2025-07-10 15:41] LABS: INR 1.0 (0.9-1.3); Prothrombin Time 11.2 SECONDS (9.4-12.5)
[2025-07-10 15:44] LABS: PTT Partial Thromboplastin Tim 35 SECONDS (25.1-36.5)
[2025-07-10 15:50] LABS: Troponin I < 0.012 ng/mL (0.01-0.034)
--- NOTE | 2025-07-10 16:14 | DI.MRI.S_ITS ---
PROCEDURE: MR HEAD/BRAIN WO CON
[2025-07-10 16:15] LABS: COVID19 -Nasal RAPID Negative (Negative)
[2025-07-10] MEDS: ASPIRIN 81 MG CHEW TAB 324 MG PO (17:06)
[2025-07-10 17:15] LABS: Culture Indicated Urine Cult Not Indicated; UR Morphine/Opiate cutoff 300 Negative (Negative); Ur Specific Gravity Normal (Normal); Urine MDMA Negative (Negative); Urine Methamphetamines Negative (Negative); Urine Tetrahydrocannabinol Negative (Negative); Urine Tricyclic Antidepressant Negative (Negative)
[2025-07-10] MEDS: CLOPIDOGREL 75 MG TABLET 300 MG PO (19:35)
[2025-07-10] MEDS: SODIUM CHLORIDE 0.9% 1,000 ML 100 ML IV (22:56)
[2025-07-10] MEDS: LOSARTAN 50 MG TABLET PO (23:02)
[2025-07-11] VITALS: BP 150/65; PULSE 69; RESP 18; TEMP 36.6; O2SAT 94
[2025-07-11 04:36] LABS: MRSA (Nasal) PCR NOT DETECTED (Not Detect)
[2025-07-11 04:50] VITALS: BP 169/71; PULSE 72; RESP 18; TEMP 37.1; O2SAT 96
[2025-07-11 05:23] LABS: Add Manual Diff / Slide Review NO; Hematocrit 32.0 % (36-46); Hemoglobin 10.7 g/dL (12.0-16.0); Lymphocytes Absolute Auto 1800 /uL (1100-4500); Mean Corpuscular HGB Conc 33.3 % (30-36); Mean Corpuscular Hemoglobin 28.5 PG (26-34); Mean Corpuscular Volume 85.5 fL (80-100); Platelet Count 260 X10^3/uL (150-400)
[2025-07-11 05:36] LABS: Alanine Aminotransferase 24 IU/L (<35); Albumin 4.2 g/dL (3.5-5.0); Albumin Globulin Ratio 1.4 (1.0-2.8); Alkaline Phosphatase 79 U/L (38-126); Blood Urea Nitrogen 24 mg/dL (7-17); Calcium 9.4 mg/dL (8.4-10.2); Carbon Dioxide 18 mmol/L (22-32); Chloride 112 mmol/L (98-107); Estimated Glomerular Filt Rate 45 mL/min (>60); Globulin 2.9 g/dL (1.7-4.1); Glucose 97 mg/dL (70-99); HEMOLYSIS < 15 (0-50); Potassium 3.9 mmol/L (3.4-5.1); Sodium 139 mmol/L (137-145); Total Protein 7.1 g/dL (6.3-8.2)
--- NOTE | 2025-07-11 07:26 | P.HP_ITS ---
History of Present Illness
--- NOTE | 2025-07-11 07:26 | PM.HP.IH.1 ---
History of Present Illness History of Present Illness Date Patient Seen: 07/11/25 Time Patient Seen: 07:27 Chief complaint: no vision out of rt eye Narrative: 79-year-old female with chronic kidney disease kidney stones hypertension hyperlipidemia and arthritis of lumbar spine. Presented to the emergency department with sudden vision loss of right eye. She said the symptoms happened in the middle of the morning yesterday morning. She has never had this before it was in her right eye she became concerned and immediately went to her eye doctor which she said got her in within 10 minutes. They did not evaluation she was told that she had a blockage of her eye due to cholesterol. And was told that most likely it would not return. She was told to present to the emergency department make sure that nothing else was going on. Other than vision loss she says it is still present has not changed. She has not had any palpitation chest pain dizziness lightheadedness. She says she wants to go home immediately. She says she has been eating well drinking she lives at home independently. In still drives. She has no problems with her speech. No problems with swallowing no hands or leg weakness. No recent infections or illnesses. [facility] Medical History Proteinuria History of hypercalcemia Calcium oxalate stones Arthritis Pyuria Elevated serum creatinine Right ureteral calculus Osteoarthritis Hypertension Lumbar spinal stenosis Surgical History Hx of cystoscopy (07/10/23) Anesthesia History of tonsillectomy Status post appendectomy (1956) S/P lumbar fusion (06/29/17) Family History Father No problems noted. Mother No problems noted. Grandmother Heart disease Grandfather Cancer Grandmother No problems noted. Grandfather Heart disease Social History marital status: number of children: 2 household members: other occupational status: previously employed Smoking Status: Never smoker second hand exposure: No alcohol intake: current substance use type: does not use caffeine: No Type(s) of exercise: walking frequency: daily Meds Home Medications and Allergies Home Medications ?Medication ?Instructions ?Recorded ?Confirmed ?Type omega 5-neo-ujx-fish oil 1,000 mg 1,400 mg PO QDAY ##0 04/03/17 07/10/25 History (120 mg-180 mg) capsule (Fish Oil) [Calicum ] 1,200 mg PO BID leg cramps ##0 04/04/17 07/10/25 History [Centrum Silver] 1 tab PO Q DAY ##0 04/04/17 07/10/25 History [natural bounty hair ] 1 tab PO BID ##0 04/04/17 07/10/25 History magnesium oxide 400 mg (241.3 mg 400 mg PO Q DAY ##0 04/04/17 07/10/25 History magnesium) tablet loratadine 10 mg tablet 10 mg PO HS ##0 06/19/17 07/10/25 History Held on 07/10/25. Instructions: Order Change albuterol sulfate 90 mcg/actuation 2 puff inhalation Q4HP PRN asthma, 06/22/21 07/10/25 Rx aerosol inhaler (Ventolin HFA) SOB #8.5 grams multivitamin 1 tab PO DAILY 07/17/23 07/10/25 History potassium [Potassium-99] 99 mg PO DAILY 07/17/23 07/10/25 History zinc PO 07/17/23 06/29/25 History Disabled Parking #1 ea 09/21/23 06/29/25 Rx ropinirole 0.25 mg tablet 0.25 mg PO BEDTIME #30 tabs 08/05/24 07/10/25 Rx Held on 07/10/25. Instructions: Change in level of care simvastatin 20 mg tablet 20 mg PO QPM #90 tabs 08/28/24 07/10/25 Rx diphenhydramine HCl 25 mg capsule 25 mg PO 3XD PRN for itch #30 caps 09/10/24 07/10/25 Rx (Banophen) omeprazole 40 mg capsule,delayed 40 mg PO BID #180 caps 10/28/24 07/10/25 Rx release estradiol 0.5 mg tablet 0.5 mg PO DAILY #90 tabs 11/26/24 07/10/25 Rx medroxyprogesterone 2.5 mg tablet 2.5 mg PO DAILY #45 tabs 11/26/24 07/10/25 Rx losartan 50 mg tablet 50 mg PO BID #180 tabs 05/18/25 07/10/25 Rx hydrocodone 5 mg-acetaminophen 325 1 tab PO Q6H PRN pain #30 tabs 07/07/25 07/10/25 Rx mg tablet Allergies Allergy/AdvReac Type Severity Reaction Status Date / Time Sulfa (Sulfonamide Allergy Severe MY GLANDS Verified 07/10/25 15:13 Antibiotics) (SULFA SWELL, I (SULFONAMIDE ANTIBIOTICS)) CAN'T TURN MY HEAD, FEEL SICK Exam Vital Signs (past 8 hours): - 07/11/25 00:00 07/11/25 04:50 Temperature 97.8 F 98.7 F Pulse Rate 69 72 Respiratory Rate 18 18 Blood Pressure 150/65 H 169/71 H Pulse Oximetry 94 96 Oxygen Delivery Method Room Air Narrative Exam Narrative: Gen.: Alert good historian HEENT: NC/AT oral mucosa is moist. Lots of vision in right eye Cardio: S1-S2 regular rate and rhythm no murmurs appreciated. Respiratory: Lungs are clear to auscultation no wheezes or crackles normal respiratory effort. Abdomen: Soft nontender no rebound or guarding no liver spleen enlargement no appreciable hernias Extremities: Full range of motion no appreciable weakness no cyanosis or edema. Neurologic: Vision loss in right eye Objective Labs 07/11/25 04:40 07/11/25 04:40 Labs: Laboratory Results - last 24 hr 07/10/25 07/10/25 07/10/25 15:09 15:10 15:52 WBC 6.6 RBC 4.19 Hgb 12.1 Hct 36.1 MCV 86.0 MCH 28.8 MCHC 33.5 RDW 14.2 Plt Count 324 Neut % (Auto) 54.3 Lymph % (Auto) 35.2 [place] % (Auto) 6.9 Eos % (Auto) 3.1 Baso % (Auto) 0.5 Neut # (Auto) 3600 Lymph # (Auto) 2300 [place] # (Auto) 500 Eos # (Auto) 200 Baso # (Auto) 0 PT 11.2 INR 1.0 APTT 35 Sodium 143 Potassium 4.5 Chloride 111 H Carbon Dioxide 20 L BUN 28 H Creatinine 1.25 H Estimated GFR 44 L BUN/Creatinine Ratio 22.4 H Glucose 121 H POC Whole Bld Glucose 116 H Calcium 10.3 H Total Bilirubin 0.3 AST 36 ALT 28 Alkaline Phosphatase 85 Total Creatine Kinase 93 Troponin I < 0.012 Total Protein 8.7 H Albumin 5.0 Globulin 3.7 Albumin/Globulin Ratio 1.4 Urine RBC Urine WBC Ur Squamous Epith Cells Urine Bacteria Urine Yeast Ur Culture Indicated? Vol Urine Centrifuged Nasal Screen MRSA (PCR) U Opiates 300ng/mL cut Ur Oxycodone Screen Urine Methadone Screen Ur Barbiturates Screen U Tricyclic Antidepress Ur Phencyclidine Scrn Ur Amphetamines Screen U Methamphetamines Scrn Ur MDMA Scrn (Ecstasy) U Benzodiazepines Scrn Urine Cocaine Screen U Marijuana (THC) Screen Urine pH Urine Specific [place] Ethyl Alcohol < 10 Ur Creatinine SARS-CoV-2 (PCR) Negative 07/10/25 07/10/25 07/11/25 16:55 22:25 04:40 WBC 5.3 RBC 3.74 L Hgb 10.7 L Hct 32.0 L MCV 85.5 MCH 28.5 MCHC 33.3 RDW 14.1 Plt Count 260 Neut % (Auto) 53.1 Lymph % (Auto) 33.9 [place] % (Auto) 7.9 Eos % (Auto) 4.4 H Baso % (Auto) 0.7 Neut # (Auto) 2800 Lymph # (Auto) 1800 [place] # (Auto) 400 Eos # (Auto) 200 Baso # (Auto) 0 PT INR APTT Sodium 139 Potassium 3.9 Chloride 112 H Carbon Dioxide 18 L BUN 24 H Creatinine 1.22 H Estimated GFR 45 L BUN/Creatinine Ratio 19.7 Glucose 97 POC Whole Bld Glucose Calcium 9.4 Total Bilirubin 0.2 AST 31 ALT 24 Alkaline Phosphatase 79 Total Creatine Kinase Troponin I Total Protein 7.1 Albumin 4.2 Globulin 2.9 Albumin/Globulin Ratio 1.4 Urine RBC >100/hpf H Urine WBC 0-1/hpf Ur Squamous Epith Cells None seen Urine Bacteria Few (2-10) H Urine Yeast 5-10/hpf H Ur Culture Indicated? Cult not indicated Vol Urine Centrifuged 10ml (spun) Nasal Screen MRSA (PCR) Not detected U Opiates 300ng/mL cut Negative Ur Oxycodone Screen Negative Urine Methadone Screen Negative Ur Barbiturates Screen Negative U Tricyclic Antidepress Negative Ur Phencyclidine Scrn Negative Ur Amphetamines Screen Negative U Methamphetamines Scrn Negative Ur MDMA Scrn (Ecstasy) Negative U Benzodiazepines Scrn Negative Urine Cocaine Screen Negative U Marijuana (THC) Screen Negative Urine pH Normal Urine Specific [place] Normal Ethyl Alcohol Ur Creatinine Normal SARS-CoV-2 (PCR) Assessment & Plan Assessment and plan (1) CVA (cerebral vascular accident): Qualifiers: CVA mechanism: unspecified Qualified Code(s): I63.9 - Cerebral infarction, unspecified Status: Acute Plan Cerebrovascular accident with vision lost her right eye. CT CTA negative. MRI brain negative. No carotid are cerebrovascular disease seen on imaging. Ophthalmology report showed occlusive disease due to atherosclerosis. Discussed care with stroke specialist. Recommended admission to the hospital for further workup and evaluation. Patient was started on aspirin and Plavix. She is currently on a statin. Overnight patient remained a.c. symptomatic for other neurological symptoms. She did not have atrial fibrillation. She has not echocardiogram print pending this morning. Patient states he would like to go home immediately after her echocardiogram. She will go home with aspirin and Plavix. Hyperlipidemia. Patient on simvastatin. We will continue simvastatin. Hypertension. Patient's blood pressure looks good this morning without significant concerning elevation although mildly. Will continue her losartan at 50 mg twice a day. Lumbar spine stenosis. With ongoing back pain chronic and stable. Disposition and plan home after echocardiogram today. Time-Based Coding :: [TOTAL MINUTES] spent with patient and on the chart (including review of chart, obtaining history, exam, reviewing outside data, placing orders, documenting exam and treatment plan, and counseling patient) on [DATE]. Quality VTE Deep Vein Thrombosis/Pulmonary Embolism Present on Admission: No IH PROFEE [employer] Document charge(s): Yes
--- NOTE | 2025-07-11 08:08 | P.DS_ITS ---
History of Present Illness
--- NOTE | 2025-07-11 08:08 | PM.DS.IH.1 ---
History of Present Illness History of Present Illness Chief complaint: no vision out of rt eye Narrative: 79-year-old female with chronic kidney disease kidney stones hypertension hyperlipidemia and arthritis of lumbar spine. Presented to the emergency department with sudden vision loss of right eye. She said the symptoms happened in the middle of the morning yesterday morning. She has never had this before it was in her right eye she became concerned and immediately went to her eye doctor which she said got her in within 10 minutes. They did not evaluation she was told that she had a blockage of her eye due to cholesterol. And was told that most likely it would not return. She was told to present to the emergency department make sure that nothing else was going on. Other than vision loss she says it is still present has not changed. She has not had any palpitation chest pain dizziness lightheadedness. She says she wants to go home immediately. She says she has been eating well drinking she lives at home independently. In still drives. She has no problems with her speech. No problems with swallowing no hands or leg weakness. No recent infections or illnesses. Discharge Providers Provider Date of admission: 07/10/25 20:37 Discharge Date: 07/11/25 Primary care physician: Hyacinth Polo MD Discharge provider: Hal Munoz MD Summary Hospital Course Discharge Diagnosis: Cerebrovascular accident with right eye vision loss Hypertension Hyperlipidemia Obesity Lumbar spine stenosis with chronic back pain Hospital Course: Patient was admitted to the hospital for further workup and evaluation of cerebrovascular accident with sudden vision loss thought due be due to cerebral atherosclerosis. Patient had a visual evaluation and recommended her coming to the emergency room. Patient had an MRI CT and CT angiogram which showed no in acute intracranial pathology. Patient was started on aspirin and Plavix. She was admitted for 24 hours and had no telemetry monitoring signs of atrial fibrillation. Echocardiogram was pending at the time of discharge. Patient was adamant that she was going to go home afterwards. Her home medications were continued she was eating and ambulating well. She was encouraged not to drive. She will have addition of aspirin and Plavix he has on a statin and good blood pressure medication. Exam Vital Signs (past 8 hours): - 07/11/25 04:50 Temperature 98.7 F Pulse Rate 72 Respiratory Rate 18 Blood Pressure 169/71 H Pulse Oximetry 96 Oxygen Delivery Method Room Air Objective Labs 07/11/25 04:40 07/11/25 04:40 Labs: Laboratory Results - last 24 hr 07/10/25 07/10/25 07/10/25 15:09 15:10 15:52 WBC 6.6 RBC 4.19 Hgb 12.1 Hct 36.1 MCV 86.0 MCH 28.8 MCHC 33.5 RDW 14.2 Plt Count 324 Neut % (Auto) 54.3 Lymph % (Auto) 35.2 [place] % (Auto) 6.9 Eos % (Auto) 3.1 Baso % (Auto) 0.5 Neut # (Auto) 3600 Lymph # (Auto) 2300 [place] # (Auto) 500 Eos # (Auto) 200 Baso # (Auto) 0 PT 11.2 INR 1.0 APTT 35 Sodium 143 Potassium 4.5 Chloride 111 H Carbon Dioxide 20 L BUN 28 H Creatinine 1.25 H Estimated GFR 44 L BUN/Creatinine Ratio 22.4 H Glucose 121 H POC Whole Bld Glucose 116 H Calcium 10.3 H Total Bilirubin 0.3 AST 36 ALT 28 Alkaline Phosphatase 85 Total Creatine Kinase 93 Troponin I < 0.012 Total Protein 8.7 H Albumin 5.0 Globulin 3.7 Albumin/Globulin Ratio 1.4 Urine RBC Urine WBC Ur Squamous Epith Cells Urine Bacteria Urine Yeast Ur Culture Indicated? Vol Urine Centrifuged Nasal Screen MRSA (PCR) U Opiates 300ng/mL cut Ur Oxycodone Screen Urine Methadone Screen Ur Barbiturates Screen U Tricyclic Antidepress Ur Phencyclidine Scrn Ur Amphetamines Screen U Methamphetamines Scrn Ur MDMA Scrn (Ecstasy) U Benzodiazepines Scrn Urine Cocaine Screen U Marijuana (THC) Screen Urine pH Urine Specific [place] Ethyl Alcohol < 10 Ur Creatinine SARS-CoV-2 (PCR) Negative 07/10/25 07/10/25 07/11/25 16:55 22:25 04:40 WBC 5.3 RBC 3.74 L Hgb 10.7 L Hct 32.0 L MCV 85.5 MCH 28.5 MCHC 33.3 RDW 14.1 Plt Count 260 Neut % (Auto) 53.1 Lymph % (Auto) 33.9 [place] % (Auto) 7.9 Eos % (Auto) 4.4 H Baso % (Auto) 0.7 Neut # (Auto) 2800 Lymph # (Auto) 1800 [place] # (Auto) 400 Eos # (Auto) 200 Baso # (Auto) 0 PT INR APTT Sodium 139 Potassium 3.9 Chloride 112 H Carbon Dioxide 18 L BUN 24 H Creatinine 1.22 H Estimated GFR 45 L BUN/Creatinine Ratio 19.7 Glucose 97 POC Whole Bld Glucose Calcium 9.4 Total Bilirubin 0.2 AST 31 ALT 24 Alkaline Phosphatase 79 Total Creatine Kinase Troponin I Total Protein 7.1 Albumin 4.2 Globulin 2.9 Albumin/Globulin Ratio 1.4 Urine RBC >100/hpf H Urine WBC 0-1/hpf Ur Squamous Epith Cells None seen Urine Bacteria Few (2-10) H Urine Yeast 5-10/hpf H Ur Culture Indicated? Cult not indicated Vol Urine Centrifuged 10ml (spun) Nasal Screen MRSA (PCR) Not detected U Opiates 300ng/mL cut Negative Ur Oxycodone Screen Negative Urine Methadone Screen Negative Ur Barbiturates Screen Negative U Tricyclic Antidepress Negative Ur Phencyclidine Scrn Negative Ur Amphetamines Screen Negative U Methamphetamines Scrn Negative Ur MDMA Scrn (Ecstasy) Negative U Benzodiazepines Scrn Negative Urine Cocaine Screen Negative U Marijuana (THC) Screen Negative Urine pH Normal Urine Specific [place] Normal Ethyl Alcohol Ur Creatinine Normal SARS-CoV-2 (PCR) [facility] Medical History Proteinuria History of hypercalcemia Calcium oxalate stones Arthritis Pyuria Elevated serum creatinine Right ureteral calculus Osteoarthritis Hypertension Lumbar spinal stenosis Surgical History Hx of cystoscopy (07/10/23) Anesthesia History of tonsillectomy Status post appendectomy (1956) S/P lumbar fusion (06/29/17) Family History Father No problems noted. Mother No problems noted. Grandmother Heart disease Grandfather Cancer Grandmother No problems noted. Grandfather Heart disease Social History marital status: number of children: 2 household members: other occupational status: previously employed Smoking Status: Never smoker second hand exposure: No alcohol intake: current substance use type: does not use caffeine: No Type(s) of exercise: walking frequency: daily Discharge Plan Discharge Plan Patient Disposition: Home Provider Discharge Comment: Discharge home follow up with Dr. Next week. 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 Continue statin and blood pressure medication Discharge orders & Medications Prescriptions: New aspirin 325 mg Tablet,Delayed Release (Dr/Ec) 325 mg PO DAILY Qty: 30 3RF clopidogrel 75 mg Tablet 75 mg PO DAILY Qty: 30 1RF Continued (DME) Disabled Parking See Rx Instructions .ROUTE .MEDSUPPLY Qty: 1 0RF Rx Instructions: I find this patient to be medical disabled and qualified for Disabled Parking as indicated, and signed, on the and the Accompanying Disabled Parking Application for Individuals. ropinirole 0.25 mg tablet 0.25 mg PO BEDTIME Qty: 30 2RF Rx Instructions: administer 1-3 hours before bedtime omega 0-rod-cpn-fish oil [Fish Oil] 1,000 MG capsule 1,400 mg PO QDAY Qty: 0 magnesium oxide 400 MG tablet 400 mg PO Q DAY Qty: 0 [Calicum ] 1,200 mg PO BID Qty: 0 [Centrum Silver] 1 tab PO Q DAY Qty: 0 [natural bounty hair ] 1 tab PO BID Qty: 0 loratadine 10 MG tablet 10 mg PO HS Qty: 0 albuterol sulfate [Ventolin HFA] 90 mcg/actuation HFA aerosol inhaler 2 puff inhalation Q4HP PRN (Reason: asthma, SOB) Qty: 8.5 1RF simvastatin 20 mg tablet 20 mg PO QPM Qty: 90 3RF diphenhydramine HCl [Banophen] 25 mg capsule 25 mg PO 3XD PRN (Reason: for itch) Qty: 30 0RF omeprazole 40 mg capsule,delayed release(DR/EC) 40 mg PO BID Qty: 180 3RF medroxyprogesterone 2.5 mg tablet 2.5 mg PO DAILY Qty: 45 3RF estradiol 0.5 mg tablet 0.5 mg PO DAILY Qty: 90 3RF losartan 50 mg tablet 50 mg PO BID Qty: 180 2RF hydrocodone-acetaminophen 5-325 mg tablet 1 tab PO Q6H PRN (Reason: pain) Qty: 30 0RF multivitamin Tablet 1 tab PO DAILY zinc PO potassium [Potassium-99] 99 mg PO DAILY Follow up/Referrals: Hyacinth Polo MD [Primary Care Provider, Family Practice] Visit Report/Discharge Packet Stand Alone Forms: Patient Portal/API, Stroke Signs & Symptoms Discharge Data Primary Care Provider: Hyacinth Polo Attending Provider: Hal Munoz Admit Date/Time: 07/10/25 20:37 Quality VTE Deep Vein Thrombosis/Pulmonary Embolism Present on Admission: No IH PROFEE Charge Codes Discharge inpatient/observation: [id number]
[2025-07-11] MEDS: ASPIRIN EC 325 MG TABLET PO (09:12)
[2025-07-11] MEDS: CLOPIDOGREL 75 MG TABLET PO (09:12)
[2025-07-11] MEDS: LOSARTAN 50 MG TABLET PO (09:12)
--- NOTE | 2025-07-11 10:26 | PC.NURSE ---
Discharge instructions given and understood. PIV and telemetry removed. Pt discharged via private vehicle. Pt escorted to the entrance via wheelchair.
--- NOTE | 2025-07-11 14:08 | CM.DANOTE ---
Initial DCP Assessment Note. Review EMR and PT Interview. Per chart review, 79 yo female, independent, live alone at home. Payor:??[facility] PCP: Summary & Plan:?79 y/o female arrived to ED via POV c/o sudden loss of vision. Admitted ICU OBS. Dx. CVA. Plan: monitor for any neuro changes. Discharge home if improved. Discharge Planning/Care Management Advanced directive, confirm from FAMILY Start: 07/10/25 22:13 Freq: Q24H Status: Discharge Protocol: Document 07/10/25 22:13 (Rec: 07/10/25 22:28 [id number]) Advance Directive, confirm on record Time 22:00 Person contacted delio Copy received No CM Discharge Assessment Start: 07/10/25 21:25 Freq: Status: Discharge Protocol: Document 07/11/25 14:04 (Rec: 07/11/25 14:07 [id number]) Discharge Planning Assessment Assigned Discharge Bettina Ramirez RN CM Text Transcriber Provider Dr. Polo [facility] Advance Directives? Yes Advance Directives No on File History Provided By Patient Prior Living Apartment/Condo Arrangements Household Members other Independent with ADL Yes 's Is patient alert and Yes oriented? Review Status In Process Please Provide Date 07/11/25 Initial DC Assessment Was Performed Next Review Type Continued Stay Review
== END 2025-07-11 10:17 | disposition home or self-care (01) ==
LOC: ED 20:37 → AC 20:38 → ICU 21:01
PROVIDERS: Admitting Provider Family Medicine; Emergency Provider Emergency Medicine; PCP Family Medicine; Visit Provider Family Medicine
DX: I63.9 Cerebral infarction, unspecified (principal); H53.131 Sudden visual loss, right eye; R29.702 NIHSS score 2; E78.5 Hyperlipidemia, unspecified; I70.8 Atherosclerosis of other arteries; M19.90 Unspecified osteoarthritis, unspecified site; I12.9 Hypertensive chronic kidney disease with stage 1 through stage 4 chronic kidney disease, or unspecified chronic kidney disease; N18.9 Chronic kidney disease, unspecified; M48.061 Spinal stenosis, lumbar region without neurogenic claudication; N20.0 Calculus of kidney; E66.9 Obesity, unspecified; G89.29 Other chronic pain; M54.50 Low back pain, unspecified
CPT/HCPCS: 36415; 70450; 70496; 70498; 70551; 80053; 80305; 80320; 81003; 81015; 82550; 82962; 84484; 85025; 85610; 85730; 87635; 87797; 93005; 96360; 96361; 99284; G0378; C8929; J7030; Q9957; Q9967

== ENCOUNTER → 2025-07-15 15:05 | Outpatient (CLI) | payer OTHER, SELFPAY ==
[2025-07-10 21:25] VITALS: BMI 36.6
== END ==
PROVIDERS: PCP Family Medicine
DX: H34.11 Central retinal artery occlusion, right eye (principal)
CPT/HCPCS: 36415; 85651; 86140

== ENCOUNTER 2025-07-23 14:33 | Outpatient (RCR) | payer OTHER, SELFPAY ==
[2025-07-10 21:25] VITALS: BMI 36.6
--- NOTE | 2025-07-23 15:42 | OT.OP.EVAL ---
Visit Care Team Role Provider Type Hyacinth Polo MD Attending Provider Physician Primary Care Provider Referring Provider Specialty: Family Practice Address: [address] [place] [address], [facility], [place], [place], [facility] Email: [email or web address] Occupational Therapy Initial Evaluation OT Outpatient Adult Evaluation Start: 07/23/25 15:25 Freq: Status: Active Protocol: Document 07/23/25 15:25 AMS (Rec: 07/23/25 15:42 [id number]) General Information - Adult Visit Number 09/17 Insurance [facility] Medicare Advantage; *Auth x 15 visits Information Visit Start Time 14:45 Visit Stop Time 15:15 Treatment Setting Outpatient Care Note Type Initial Evaluation Assessment/Plan Treatment Assessment María is a 79 year-old female referred to outpatient OT secondary to R vision loss; María verbalized concerns re: poor depth perception. 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 She is and has 2 children. María had a consult at [facility] w/ [facility]; medical records indicate that she was diagnosed w/ central retinal artery occlusion, posterior vitreous detachment, pseudophakia of B eyes. She was told that there is aileen existing treatment for CRAO, acuity will not improve, w/ recommendation to wear glasses at all times. No further treatment had been recommended either . Medical records also indicate that she suffered a stroke; although, María verbally indicated that all diagnostic measures were negative and she had not actually suffered from a stroke. With glasses on, she correctly identified 39 out of 40 targets w/ visual scanning task; she did check/scan thru items a second time to identify 2 missed targets; targets were the numbers 91 and 30. María demonstrated good attention/good eye contact w/ turning to the R in which clinician was located to her R at the desk; she demonstrated no pathway deviations and avoided all obstacles in her pathway to and from clinic without use of mobility AE and/or assistance. She managed her purse and jacket (placing purse on table and jacket on back of chair without assistance - without missing target locations); she also was able to locate her cell phone and navigate her personal cell phone w/ glasses on without assistance. She retrieved her jacket (which was to the right) and purse from table without errors. She demonstrated minor errors w/ [id number] bilateral with eyes open; she also demonstrated minor errors w/ [id number] w/ eyes closed w/ tendency to want to flex L elbow (errors with touching proximal to pad of primarily L 2nd digit, slightly above nose tip L). She verbalized that she has 5-6 out of 10 pain relative to lower back; she indicated that her difficulties may be related more to her back. She is currently trying to speak to back specialist to receive pain-based treatment. No further treatment is needed at this time; given that main concerns are about driving, recommend consulting w/ MD and eye doctor (receiving assist as planned) regarding any limitations. Recommend following up w/ PCP to assist w/ referral, seeing back pain specialist. Patient Discharge from Occupational Therapy Recommendations
== END 2025-07-28 14:50 | disposition home or self-care (01) ==
LOC: OT 14:33
PROVIDERS: PCP Family Medicine; Referring Provider Family Medicine; Visit Provider Family Medicine
DX: H54.61 Unqualified visual loss, right eye, normal vision left eye (principal)
CPT/HCPCS: 97165

== ENCOUNTER → 2025-07-29 15:19 | Outpatient (CLI) | payer OTHER, SELFPAY ==
[2025-07-10 21:25] VITALS: BMI 36.6
--- NOTE | 2025-07-29 15:22 | DI.MRI.S_ITS ---
PROCEDURE: MR LUMBAR SPINE WO CON INDICATIONS: back pain TECHNIQUE: Noncontrast sagittal T1 spin echo and T2 fast echo, sagittal STIR, and T2 fast spin echo through the lumbar spine. In cases with scoliosis, additional coronal T2 fast spin echo may be performed. COMPARISON: [facility], MR, MR LUMBAR SPINE WO CON, 05/16/2024, 19:09. FINDINGS: Image quality: Excellent. Alignment and Curvature: Remote posterior decompression and posterior lateral fusion at L4 through S1. Unchanged alignment. Trace retrolisthesis of L2 on L3. Trace anterolisthesis of L4 on L5. Trace retrolisthesis of L5 on S1. Bone Marrow: Marrow is of normal overall signal. No acute vertebral body compression fractures. Spinal Cord: Conus medullaris terminates at the L1 level. Visualized cord demonstrates normal signal and size. Paraspinous Soft Tissues: No paravertebral masses. T12-L1: Normal appearance. L1-L2: Normal appearance. L2-L3: Interval increase in severe disc height loss. Unchanged trace retrolisthesis of L2 on L3. Diffuse posterior disc bulge and facet hypertrophy. Interval increase in left foraminal disc bulge/disc protrusion. Epidural lipomatosis. Unchanged mild canal stenosis. The increased disc bulge/disc protrusion into the left foramen results in disc material abutting the left L2 nerve root far laterally. Reference T2 sagittal image 12 of series 2 and T2 axial image 18 of series 5. L3-L4: Disc bulge. Facet hypertrophy. Epidural lipomatosis. Development of mild canal stenosis. No foraminal stenosis. L4-L5: Left hemilaminectomy. Unchanged mild anterolisthesis. Posterior lateral fusion. No canal stenosis or foraminal stenosis. L5-S1: Left hemilaminectomy. Posterior lateral fusion. Facet hypertrophy. No canal stenosis or foraminal stenosis. IMPRESSION: 1. Remote posterior decompression and posterior lateral fusion at L4 through S1. 2. Canal stenosis is mild and unchanged at L2-L3. It is progressive and mild at L3-L4. 3. At L2-L3, disc material now abuts the left L2 nerve root far laterally. This is of uncertain clinical significance. Recommend correlation for presence or absence of left L2 symptoms. Dictated by: Modesto Dunlap M.D. on 07/31/2025 at 7:39 Approved by: Modesto Dunlap M.D. on 07/31/2025 at 7:46
== END ==
LOC: MRI 15:20
PROVIDERS: PCP Family Medicine; Referring Provider Family Medicine; Visit Provider Family Medicine
DX: M48.061 Spinal stenosis, lumbar region without neurogenic claudication (principal); M51.369 Other intervertebral disc degeneration, lumbar region without mention of lumbar back pain or lower extremity pain; M47.816 Spondylosis without myelopathy or radiculopathy, lumbar region; M47.817 Spondylosis without myelopathy or radiculopathy, lumbosacral region; E88.2 Lipomatosis, not elsewhere classified; M48.8X6 Other specified spondylopathies, lumbar region; Z98.1 Arthrodesis status
CPT/HCPCS: 72148